=== PATIENT | female | born 1945 | race Caucasian/White ===

== ENCOUNTER → 2018-03-23 10:38 | Outpatient (CLI) | payer MEDICARE, BC, SELFPAY | PROVIDERS: PCP Family Medicine; Visit Provider Family Medicine | DX: M81.0 Age-related osteoporosis without current pathological fracture (principal); Z78.0 Asymptomatic menopausal state; Z82.62 Family history of osteoporosis | CPT/HCPCS: 77080 ==

== ENCOUNTER 2018-09-09 14:36 | Emergency (ER) | payer MEDICARE, BC, SELFPAY ==
[2018-09-09 14:54] VITALS: BP 162/93; PULSE 71; RESP 16; TEMP 36.9; O2SAT 99; BMI 19.6
[2018-09-09 18:28] VITALS: BP 124/82; PULSE 60; RESP 15; O2SAT 100
[2018-09-09 19:58] VITALS: BP 151/85; PULSE 57; RESP 17; O2SAT 98
[2018-09-09] MEDS: SODIUM CHLORIDE 0.9% 1,000 ML 1000 ML IV (20:00)
[2018-09-09 20:34] LABS: Add Manual Diff / Slide Review NO; Alanine Aminotransferase 32 IU/L (9-52); Albumin 4.7 g/dL (3.5-5.0); Albumin Globulin Ratio 1.6 (1.0-2.8); Alkaline Phosphatase 59 U/L (38-126); Aspartate Aminotransferase 33 IU/L (14-36); BUN Creatinine Ratio 13.3 (6-22); Basophils Absolute Auto 0 /uL (0-100); Basophils Percent Auto 0.3 % (0-2); Bilirubin Total 0.8 mg/dL (0.2-1.3); Blood Urea Nitrogen 8 mg/dL (7-17); Calcium 9.4 mg/dL (8.4-10.2); Carbon Dioxide 26 mmol/L (22-32); Chloride 98 mmol/L (98-107); Eosinophils Absolute Auto 0 /uL (0-450); Eosinophils Percent Auto 0.7 % (2-4); Estimated Glomerular Filt Rate > 60.0 mL/min (>60); Glucose 88 mg/dL (80-110); HEMOLYSIS < 15 (0-50); Hematocrit 41.1 % (36-46); Hemoglobin 14.1 g/dL (12.0-16.0); Lymphocytes Absolute Auto 1700 /uL (1100-4500); Mean Corpuscular HGB Conc 34.4 % (30-36); Mean Corpuscular Hemoglobin 30.6 PG (26-34); Mean Corpuscular Volume 89.1 fL (80-100); Monocytes Absolute Auto 700 /uL (0-900); Neutrophils Absolute Auto 3500 /uL (1500-7000); Platelet Count 277 X10^3/uL (150-400); Potassium 3.7 mmol/L (3.4-5.1); Red Blood Cell Count 4.62 X10^6/uL (4.0-5.2); Red Cell Distribution Width 12.2 % (11.6-14.8); Sodium 134 mmol/L (137-145); Total Protein 7.7 g/dL (6.3-8.2)
[2018-09-09 21:14] VITALS: BP 163/77; PULSE 58; RESP 15; O2SAT 100
[2018-09-09 22:49] VITALS: BP 113/80; PULSE 69; RESP 15; TEMP 37.4; O2SAT 100
--- NOTE | 2018-09-10 00:02 | ED.NAVMDI ---
HPI - Nausea/Vomiting/Diarrhea General Chief complaint: Nausea/Vomiting/Diarrhea Stated complaint: DIARRHEA X 1 YR Time Seen by Provider: 09/09/18 18:23 Source: patient and family Mode of arrival: ambulatory Limitations: no limitations History of Present Illness HPI Narrative: 72-year-old nonsmoking female without significant medical problems presents with her for evaluation of 1 year of diarrhea. She states her symptoms started last August when she took a bowel prep for a colonoscopy. She developed loose stools and had a relatively normal colonoscopy noting diverticulosis. She has had slowly worsening trouble with loose stools ever since. She has frequent episodes of generalized abdominal cramping that builds until her loose stool occurs. She states she has diarrhea within 1 hr of eating food. She is not dizzy or weak or lightheaded but is increasingly, gradually fatigued. She has an appointment in a month with GI at [facility]. No new meds, no travel or recent antibiotics MD complaint: diarrhea and abdominal pain Onset (ago): year(s) Description of Vomiting: watery Description of Diarrhea: watery Associated Abdominal Pain: Yes Location of pain: diffuse Severity: mild Quality: cramping Relieving factors: none Exacerbating factors: eating Related Data Allergies Allergy/AdvReac Type Severity Reaction Status Date / Time acetaminophen [From PERCOCET] Allergy Unknown Unverified 09/23/17 12:20 aspirin [ASPIRIN] Allergy Unknown Unverified 09/23/17 12:20 codeine [CODEINE] Allergy Unknown Unverified 09/23/17 12:20 oxycodone [From PERCOCET] Allergy Unknown Unverified 09/23/17 12:20 Review of Systems Constitutional Denies chills, Denies fever(s), Denies lethargy and Denies weakness Eyes Denies change in vision, Denies eye discharge, Denies irritation and Denies loss of vision ENT Ears, Nose, Mouth, and Throat: Denies change in voice, Denies neck pain and Denies sore throat Cardiovascular Denies chest pain, Denies irregular heart rhythm, Denies lightheadedness, Denies palpitations, Denies dyspnea, Denies dyspnea on exertion and Denies orthopnea Respiratory Denies cough, Denies dyspnea, Denies dyspnea on exertion and Denies wheezing Gastrointestinal Gastrointestinal: Denies abdominal pain, Denies change in bowel habits, Reports diarrhea, Denies nausea and Denies vomiting Genitourinary Denies hematuria, Denies flank pain, Denies urinary incontinence and Denies urinary urgency Musculoskeletal Denies neck pain Integumentary/Breasts Denies pruritus, Denies erythema, Denies rash and Denies wounds Neurologic Denies confusion, Denies loss of vision and Denies weakness Psychiatric Denies anxiety, Denies confusion, Denies depression, Denies homicidal ideation and Denies suicidal ideation Endocrine Denies palpitations Hematologic/Lymphatic Denies easy bruising Allergic/Immunologic Denies wheezing [facility] Social History Smoking Status: Never smoker Social History Smoking Status: Never smoker Exam Narrative Exam Narrative: GENERAL: This is a well-nourished, well-developed patient, in mild distress. HEAD: Atraumatic. Normocephalic. No temporal or scalp tenderness. EYES: Pupils equal round and reactive. Extraocular motions intact. No scleral icterus. No injection or drainage. ENT: Nose without bleeding, purulent drainage or septal hematoma. Throat without erythema, tonsillar hypertrophy or exudate. Uvula midline. Airway patent. NECK: Trachea midline. No JVD or lymphadenopathy. Supple, nontender, no meningeal signs. CARDIOVASCULAR: Regular rate and rhythm without murmurs, gallops, or rubs. RESPIRATORY: Clear to auscultation. Breath sounds equal bilaterally. No wheezes, rales, or rhonchi. GASTROINTESTINAL: Abdomen soft, non-tender, nondistended. No hepato-splenomegaly, or palpable masses. No guarding. EXTREMITIES: No clubbing, cyanosis, or edema. No joint tenderness, effusion, or edema noted. BACK: Nontender without deformity or crepitance. No flank tenderness. NEURO: AOx3. SKIN: No rash or erythema. Initial Vital Signs Initial Vital Signs: Vital Signs Temperature 98.4 F 09/09/18 14:54 Pulse Rate 71 09/09/18 14:54 Respiratory Rate 16 09/09/18 14:54 Blood Pressure 162/93 H 09/09/18 14:54 Pulse Oximetry 99 09/09/18 14:54 Course Course Narrative: Discussion with on-call GI to see if there are any labs that we could order that may help their upcoming visit. He requests ova and parasites, fecal leukocytes, C diff and GI panel patient feels better after fluids, has a small BM which is NOT enough for all studies Orders Ordered: ED Orders 09/09/18 20:25 Complete Blood Count AUTO DIFF Stat Comprehensive Metabolic Panel Stat 09/09/18 22:14 GI Panel (Film Array) Stat 09/09/18 22:20 Fecal Leukocytes Stat Stool Culture Stat Discontinued Medications Sodium Chloride (Normal Saline 0.9%) 1,000 mls @ 1,000 mls/hr IV BOLUS ONE Stop: 09/09/18 20:55 Last Infusion: 09/09/18 21:07 Dose: 1,000 mls/hr Admin: 09/09/18 20:00 Dose: 1,000 mls/hr Vital Signs - 8 hr 09/09/18 18:28 09/09/18 19:58 09/09/18 21:14 Temperature Pulse Rate 60 57 L 58 L Respiratory Rate 15 17 15 Blood Pressure [Left Arm] 124/82 151/85 H 163/77 H Pulse Oximetry 100 98 100 09/09/18 22:49 Temperature 99.3 F Pulse Rate 69 Respiratory Rate 15 Blood Pressure [Left Arm] 113/80 Pulse Oximetry 100 MDM - Nausea/Vomiting/Diarrhea Lab Data Result diagrams: 09/09/18 20:25 09/09/18 20:25 Lab Results 09/09/18 09/09/18 Range/Units 20:25 20:25 WBC 6.0 (4.5-11.0) X10^3/uL RBC 4.62 (4.0-5.2) X10^6/uL Hgb 14.1 (12.0-16.0) g/dL Hct 41.1 (36-46) % MCV 89.1 (80-100) fL MCH 30.6 (26-34) PG MCHC 34.4 (30-36) % RDW 12.2 (11.6-14.8) % Plt Count 277 (150-400) X10^3/uL Neut % (Auto) 59.0 (50-75) % Lymph % (Auto) 29.0 (25-40) % [place] % (Auto) 11.0 (3-14) % Eos % (Auto) 0.7 L (2-4) % Baso % (Auto) 0.3 (0-2) % Neut # (Auto) 3500 (3860-6493) /uL Lymph # (Auto) 1700 (6632-6752) /uL [place] # (Auto) 700 (0-900) /uL Eos # (Auto) 0 (0-450) /uL Baso # (Auto) 0 (0-100) /uL Sodium 134 L (137-145) mmol/L Potassium 3.7 (3.4-5.1) mmol/L Chloride 98 (98-107) mmol/L Carbon Dioxide 26 (22-32) mmol/L BUN 8 (7-17) mg/dL Creatinine 0.60 (0.52-1.04) mg/dL Estimated GFR > 60.0 (>60) mL/min BUN/Creatinine Ratio 13.3 (6-22) Glucose 88 (80-110) mg/dL Calcium 9.4 (8.4-10.2) mg/dL Total Bilirubin 0.8 (0.2-1.3) mg/dL AST 33 (14-36) IU/L ALT 32 (9-52) IU/L Alkaline Phosphatase 59 (38-126) U/L Total Protein 7.7 (6.3-8.2) g/dL Albumin 4.7 (3.5-5.0) g/dL Globulin 3.0 (1.7-4.1) g/dL Albumin/Globulin Ratio 1.6 (1.0-2.8) Discharge Plan Departure Patient Disposition: Home Clinical Impression: Diarrhea Qualifiers: Diarrhea type: unspecified type Qualified Code(s): R19.7 - Diarrhea, unspecified Discharge Date/Time: 09/09/18 22:50 Interventions: ED Discharge Assessment Last Done: 09/09/18 22:50 Instructions: Diarrhea Activity Restrictions/Additional Instructions: *You have been diagnosed with [ chronic diarrhea ] *What to do: *Follow up with your primary care provider in 2-3 days, call for an appointment. Let them know you were seen in the Emergency Department and that we ask that you be seen in follow up *Return to ER if you should have any new, worsening or concerning symptoms * please bring your stool sample back with her outpatient lab requisition tomorrow. It must immediately going to refrigeration upon collection Referrals: Sameer Adam MD [Primary Care Provider] - Manny Faust MD [Non-Staff] -
--- NOTE | 2018-09-10 00:06 | ED_ITS ---
HPI - Nausea/Vomiting/Diarrhea General Chief complaint: Nausea/Vomiting/Diarrhea Stated complaint: DIARRHEA X 1 YR Time Seen by Provider: 09/09/18 18:23 Source: patient and family Mode of arrival: ambulatory Limitations: no limitations History of Present Illness HPI Narrative: 72-year-old nonsmoking female without significant medical problems presents with her for evaluation of 1 year of diarrhea. She states her symptoms started last August when she took a bowel prep for a colonoscopy. She developed loose stools and had a relatively normal colonoscopy noting diverticulosis. She has had slowly worsening trouble with loose stools ever since. She has frequent episodes of generalized abdominal cramping that builds until her loose stool occurs. She states she has diarrhea within 1 hr of eating food. She is not dizzy or weak or lightheaded but is increasingly, gradually fatigued. She has an appointment in a month with GI at [facility]. No new meds, no travel or recent antibiotics MD complaint: diarrhea and abdominal pain Onset (ago): year(s) Description of Vomiting: watery Description of Diarrhea: watery Associated Abdominal Pain: Yes Location of pain: diffuse Severity: mild Quality: cramping Relieving factors: none Exacerbating factors: eating Related Data Allergies Allergy/AdvReac Type Severity Reaction Status Date / Time acetaminophen [From PERCOCET] Allergy Unknown Unverified 09/23/17 12:20 aspirin [ASPIRIN] Allergy Unknown Unverified 09/23/17 12:20 codeine [CODEINE] Allergy Unknown Unverified 09/23/17 12:20 oxycodone [From PERCOCET] Allergy Unknown Unverified 09/23/17 12:20 Review of Systems Constitutional Denies chills, Denies fever(s), Denies lethargy and Denies weakness Eyes Denies change in vision, Denies eye discharge, Denies irritation and Denies loss of vision ENT Ears, Nose, Mouth, and Throat: Denies change in voice, Denies neck pain and Denies sore throat Cardiovascular Denies chest pain, Denies irregular heart rhythm, Denies lightheadedness, Denies palpitations, Denies dyspnea, Denies dyspnea on exertion and Denies orthopnea Respiratory Denies cough, Denies dyspnea, Denies dyspnea on exertion and Denies wheezing Gastrointestinal Gastrointestinal: Denies abdominal pain, Denies change in bowel habits, Reports diarrhea, Denies nausea and Denies vomiting Genitourinary Denies hematuria, Denies flank pain, Denies urinary incontinence and Denies urinary urgency Musculoskeletal Denies neck pain Integumentary/Breasts Denies pruritus, Denies erythema, Denies rash and Denies wounds Neurologic Denies confusion, Denies loss of vision and Denies weakness Psychiatric Denies anxiety, Denies confusion, Denies depression, Denies homicidal ideation and Denies suicidal ideation Endocrine Denies palpitations Hematologic/Lymphatic Denies easy bruising Allergic/Immunologic Denies wheezing [facility] Social History Smoking Status: Never smoker Social History Smoking Status: Never smoker Exam Narrative Exam Narrative: GENERAL: This is a well-nourished, well-developed patient, in mild distress. HEAD: Atraumatic. Normocephalic. No temporal or scalp tenderness. EYES: Pupils equal round and reactive. Extraocular motions intact. No scleral icterus. No injection or drainage. ENT: Nose without bleeding, purulent drainage or septal hematoma. Throat without erythema, tonsillar hypertrophy or exudate. Uvula midline. Airway patent. NECK: Trachea midline. No JVD or lymphadenopathy. Supple, nontender, no meni ngeal signs. CARDIOVASCULAR: Regular rate and rhythm without murmurs, gallops, or rubs. RESPIRATORY: Clear to auscultation. Breath sounds equal bilaterally. No wheezes, rales, or rhonchi. GASTROINTESTINAL: Abdomen soft, non-tender, nondistended. No hepato- splenomegaly, or palpable masses. No guarding. EXTREMITIES: No clubbing, cyanosis, or edema. No joint tenderness, effusion, or edema noted. BACK: Nontender without deformity or crepitance. No flank tenderness. NEURO: AOx3. SKIN: No rash or erythema. Initial Vital Signs Initial Vital Signs: Vital Signs Temperature 98.4 F 09/09/18 14:54 Pulse Rate 71 09/09/18 14:54 Respiratory Rate 16 09/09/18 14:54 Blood Pressure 162/93 H 09/09/18 14:54 Pulse Oximetry 99 09/09/18 14:54 Course Course Narrative: Discussion with on-call GI to see if there are any labs that we could order that may help their upcoming visit. He requests ova and parasites, fecal leukocytes, C diff and GI panel patient feels better after fluids, has a small BM which is NOT enough for all studies Orders Ordered: ED Orders 09/09/18 20:25 Complete Blood Count AUTO DIFF Stat Comprehensive Metabolic Panel Stat 09/09/18 22:14 GI Panel (Film Array) Stat 09/09/18 22:20 Fecal Leukocytes Stat Stool Culture Stat Discontinued Medications Sodium Chloride (Normal Saline 0.9%) 1,000 mls @ 1,000 mls/hr IV BOLUS ONE Stop: 09/09/18 20:55 Last Infusion: 09/09/18 21:07 Dose: 1,000 mls/hr Admin: 09/09/18 20:00 Dose: 1,000 mls/hr Vital Signs - 8 hr 09/09/18 18:28 09/09/18 19:58 09/09/18 21:14 Temperature Pulse Rate 60 57 L 58 L Respiratory Rate 15 17 15 Blood Pressure [Left Arm] 124/82 151/85 H 163/77 H Pulse Oximetry 100 98 100 09/09/18 22:49 Temperature 99.3 F Pulse Rate 69 Respiratory Rate 15 Blood Pressure [Left Arm] 113/80 Pulse Oximetry 100 MDM - Nausea/Vomiting/Diarrhea Lab Data Result diagrams: 09/09/18 20:25 09/09/18 20:25 Lab Results 09/09/18 09/09/18 Range/Units 20:25 20:25 WBC 6.0 (4.5-11.0) X10^3/uL RBC 4.62 (4.0-5.2) X10^6/uL Hgb 14.1 (12.0-16.0) g/dL Hct 41.1 (36-46) % MCV 89.1 (80-100) fL MCH 30.6 (26-34) PG MCHC 34.4 (30-36) % RDW 12.2 (11.6-14.8) % Plt Count 277 (150-400) X10^3/uL Neut % (Auto) 59.0 (50-75) % Lymph % (Auto) 29.0 (25-40) % [place] % (Auto) 11.0 (3-14) % Eos % (Auto) 0.7 L (2-4) % Baso % (Auto) 0.3 (0-2) % Neut # (Auto) 3500 (5030-6540) /uL Lymph # (Auto) 1700 (6327-1162) /uL [place] # (Auto) 700 (0-900) /uL Eos # (Auto) 0 (0-450) /uL Baso # (Auto) 0 (0-100) /uL Sodium 134 L (137-145) mmol/L Potassium 3.7 (3.4-5.1) mmol/L Chloride 98 (98-107) mmol/L Carbon Dioxide 26 (22-32) mmol/L BUN 8 (7-17) mg/dL Creatinine 0.60 (0.52-1.04) mg/dL Estimated GFR > 60.0 (>60) mL/min BUN/Creatinine Ratio 13.3 (6-22) Glucose 88 (80-110) mg/dL Calcium 9.4 (8.4-10.2) mg/dL Total Bilirubin 0.8 (0.2-1.3) mg/dL AST 33 (14-36) IU/L ALT 32 (9-52) IU/L Alkaline Phosphatase 59 (38-126) U/L Total Protein 7.7 (6.3-8.2) g/dL Albumin 4.7 (3.5-5.0) g/dL Globulin 3.0 (1.7-4.1) g/dL Albumin/Globulin Ratio 1.6 (1.0-2.8) Discharge Plan Departure Patient Disposition: Home Clinical Impression: Diarrhea Qualifiers: Diarrhea type: unspecified type Qualified Code(s): R19.7 - Diarrhea, uns pecified Discharge Date/Time: 09/09/18 22:50 Interventions: ED Discharge Assessment Last Done: 09/09/18 22:50 Instructions: Diarrhea Activity Restrictions/Additional Instructions: *You have been diagnosed with [ chronic diarrhea ] *What to do: *Follow up with your primary care provider in 2-3 days, call for an appointment. Let them know you were seen in the Emergency Department and that we ask that you be seen in follow up *Return to ER if you should have any new, worsening or concerning symptoms * please bring your stool sample back with her outpatient lab requisition tomorrow. It must immediately going to refrigeration upon collection Referrals: Sameer Adam MD [Primary Care Provider] - Manny Faust MD [Non-Staff] -
== END 2018-09-09 22:50 | disposition home or self-care (01) ==
PROVIDERS: Emergency Provider Emergency Medicine; PCP Family Medicine
DX: R19.7 Diarrhea, unspecified (principal)
CPT/HCPCS: 36591; 80053; 85025; 87045; 87205; 87899; 96360; 99283; 99284

== ENCOUNTER → 2018-09-10 08:00 | Outpatient (CLI) | payer MEDICARE, BC, SELFPAY ==
[2018-09-10 09:52] LABS: Adenovirus F 40/41 Not Detected (Not Detect); Astrovirus Not Detected (Not Detect); Campylobacter Not Detected (Not Detect); Clostridium difficile toxin AB Not Detected (Not Detect); Cryptosporidium Not Detected (Not Detect); Cyclospora cayetanensis Not Detected (Not Detect); Entamoeba histolytica Not Detected (Not Detect); Enteroaggregative E.coli Not Detected (Not Detect); Enteropathogenic E.coli Detected (Not Detect); Enterotoxigenic E.coli It/st Not Detected (Not Detect); Giardia lamblia Not Detected (Not Detect); Norovirus GI/GII Not Detected (Not Detect); Plesiomonsa shigelloides Not Detected (Not Detect); Rotavirus A Not Detected (Not Detect); Salmonella Not Detected (Not Detect); Sapovirus Not Detected (Not Detect); Shiga-like toxin-prod E.coli Not Detected (Not Detect); Shigella/Enteroinvasive E.coli Not Detected (Not Detect); Vibrio Not Detected (Not Detect); Vibrio cholerae Not Detected (Not Detect); Yersinia enterocolitica Not Detected (Not Detect)
== END ==
PROVIDERS: Family Provider Internal Medicine Gastroenterology; PCP Family Medicine; Visit Provider Emergency Medicine
DX: R19.7 Diarrhea, unspecified (principal)
CPT/HCPCS: 87507

== ENCOUNTER → 2018-10-06 10:43 | Outpatient (CLI) | payer MEDICARE, BC, SELFPAY ==
[2018-10-06 15:09] LABS: Clostridium Difficile Tox PCR Negative for C.diff
== END ==
PROVIDERS: Visit Provider Internal Medicine Gastroenterology
DX: K52.9 Noninfective gastroenteritis and colitis, unspecified (principal)
CPT/HCPCS: 87177; 87493

== ENCOUNTER → 2019-05-09 10:45 | Outpatient (CLI) | payer MEDICARE, BC, SELFPAY ==
--- NOTE | 2019-05-09 | DI.MG.S_ITS ---
BILATERAL DIGITAL SCREENING MAMMOGRAM 3D/2D WITH CAD: 05/09/2019 CLINICAL: Routine screening. Comparison is made to exams dated: 04/16/2017 mammogram - [facility], 04/08/2016 mammogram, and 02/22/2015 mammogram - [facility]. The tissue of both breasts is extremely dense, which lowers the sensitivity of mammography. Current study was also evaluated with a Computer Aided Detection (CAD) system. No significant masses, calcifications, or other findings are seen in either breast. There has been no significant interval change. IMPRESSION: NEGATIVE There is no mammographic evidence of malignancy. A 1 year screening mammogram is recommended. This exam was interpreted at Station ID: [id number]. NOTE: For mammograms, a report in lay terms will be sent to the patient. Approximately 15% of breast malignancies will not be visualized mammographically. In the management of a palpable breast mass, a negative mammogram must not discourage biopsy of a clinically suspicious lesion. Electronically Signed By: Ellen bustos/adria:05/09/2019 11:47:46 letter sent: Normal Exam ACR BI-RADS Category 1: Negative 3341F
[2019-05-09 11:52] LABS: Add Manual Diff / Slide Review NO; Basophils Absolute Auto 0 /uL (0-100); Basophils Percent Auto 0.7 % (0-2); Eosinophils Absolute Auto 100 /uL (0-450); Eosinophils Percent Auto 1.5 % (2-4); Hemoglobin 14.9 g/dL (12.0-16.0); Lymphocytes Absolute Auto 1800 /uL (1100-4500); Lymphocytes Percent Auto 27.4 % (25-40); Mean Corpuscular HGB Conc 34.5 % (30-36); Mean Corpuscular Hemoglobin 31.3 PG (26-34); Mean Corpuscular Volume 90.7 fL (80-100); Monocytes Absolute Auto 500 /uL (0-900); Monocytes Percent Auto 7.7 % (3-14); Neutrophils Absolute Auto 4000 /uL (1500-7000); Neutrophils Percent Auto 62.7 % (50-75); Platelet Count 273 X10^3/uL (150-400); Red Blood Cell Count 4.75 X10^6/uL (4.0-5.2); Red Cell Distribution Width 12.6 % (11.6-14.8); White Blood Cell Count 6.4 X10^3/uL (4.5-11.0)
[2019-05-09 12:15] LABS: Cholesterol 306 mg/dL (140-199); Triglycerides 72 mg/dL (35-150)
[2019-05-09 12:25] LABS: HDL Cholesterol 111 mg/dL (40-60); LDL Cholesterol Calculated 181 mg/dL (<100)
[2019-05-09 16:39] LABS: Hep C Virus Ab w/Reflex Quant NEGATIVE s/c (NEGATIVE)
== END ==
PROVIDERS: PCP Family Medicine; Visit Provider Family Medicine
DX: Z12.31 Encounter for screening mammogram for malignant neoplasm of breast (principal); Z11.59 Encounter for screening for other viral diseases; E78.49 Other hyperlipidemia; K52.9 Noninfective gastroenteritis and colitis, unspecified
CPT/HCPCS: 36415; 77063; 77067; 80061; 85025; 86803

== ENCOUNTER → 2020-03-01 09:20 | Outpatient (CLI) | payer MEDICARE, BC, SELFPAY | PROVIDERS: PCP Family Medicine; Referring Provider Family Medicine; Visit Provider Family Medicine | DX: M81.0 Age-related osteoporosis without current pathological fracture (principal); Z78.0 Asymptomatic menopausal state; Z82.62 Family history of osteoporosis | CPT/HCPCS: 77080 ==

== ENCOUNTER → 2020-05-22 10:46 | Outpatient (CLI) | payer MEDICARE, BC, SELFPAY ==
--- NOTE | 2020-05-22 | DI.MG.S_ITS ---
BILATERAL DIGITAL SCREENING MAMMOGRAM 3D/2D WITH CAD: 05/22/2020 CLINICAL: Routine screening. Comparison is made to exams dated: 05/09/2019 mammogram, 04/16/2017 mammogram - [facility], and 04/08/2016 mammogram - [facility]. The tissue of both breasts is extremely dense, which lowers the sensitivity of mammography. Current study was also evaluated with a Computer Aided Detection (CAD) system. No significant masses, calcifications, or other findings are seen in either breast. There has been no significant interval change. IMPRESSION: NEGATIVE There is no mammographic evidence of malignancy. A 1 year screening mammogram is recommended. This exam was interpreted at Station ID: [id number]. NOTE: For mammograms, a report in lay terms will be sent to the patient. Approximately 15% of breast malignancies will not be visualized mammographically. In the management of a palpable breast mass, a negative mammogram must not discourage biopsy of a clinically suspicious lesion. Electronically Signed By: Antwan [email or web address]/adria:05/22/2020 14:18:29 letter sent: Normal Exam ACR BI-RADS Category 1: Negative 3341F
== END ==
PROVIDERS: PCP Family Medicine; Referring Provider Family Medicine; Visit Provider Family Medicine
DX: Z12.31 Encounter for screening mammogram for malignant neoplasm of breast (principal)
CPT/HCPCS: 77063; 77067

== ENCOUNTER → 2021-05-23 08:54 | Outpatient (CLI) | payer MEDICARE, OTHER, SELFPAY ==
--- NOTE | 2021-05-23 | DI.MG.S_ITS ---
BILATERAL DIGITAL SCREENING MAMMOGRAM 3D/2D WITH CAD: 05/23/2021 CLINICAL: Routine screening. Comparison is made to exams dated: 05/22/2020 mammogram, 05/09/2019 mammogram, and 04/16/2017 mammogram - [facility]. The tissue of both breasts is heterogeneously dense. This may lower the sensitivity of mammography. Current study was also evaluated with a Computer Aided Detection (CAD) system. No significant masses, calcifications, or other findings are seen in either breast. There has been no significant interval change. IMPRESSION: NEGATIVE There is no mammographic evidence of malignancy. A 1 year screening mammogram is recommended. This exam was interpreted at Station ID: [id number]. NOTE: For mammograms, a report in lay terms will be sent to the patient. Approximately 15% of breast malignancies will not be visualized mammographically. In the management of a palpable breast mass, a negative mammogram must not discourage biopsy of a clinically suspicious lesion. Electronically Signed By: Ellen ubstos/adria:05/23/2021 10:03:26 letter sent: Normal Exam ACR BI-RADS Category 1: Negative [id number]
== END ==
PROVIDERS: PCP Nurse Practitioner Family; Referring Provider Nurse Practitioner Family; Visit Provider Nurse Practitioner Family
DX: Z12.31 Encounter for screening mammogram for malignant neoplasm of breast (principal)
CPT/HCPCS: 77063; 77067

== ENCOUNTER → 2022-12-25 09:24 | Outpatient (CLI) | payer MEDICARE, OTHER, SELFPAY ==
--- NOTE | 2022-12-25 | DI.US.S_ITS ---
PROCEDURE: US ABD AORTA ANEURYSM SCREEN INDICATIONS: SCREENING FOR CARDIOVASCULAR STUDY TECHNIQUE: Real time scanning was performed of the aorta and iliac arteries, with image documentation. COMPARISON: None. FINDINGS: Aorta: Proximal aortic diameter measures 2.6 cm. Mid-aorta measures 2 cm. Distal aortic diameter is 1.9 cm. Iliac arteries: Right common iliac artery measures 1.4 cm. Left common iliac artery measures 1.2 cm. IMPRESSION: Negative for aneurysm. Dictated by: Fransisco Dodd M.D. on 12/25/2022 at 15:26 Approved by: Fransisco Dodd M.D. on 12/25/2022 at 15:26
--- NOTE | 2022-12-25 | DI.MG.S_ITS ---
BILATERAL DIGITAL SCREENING MAMMOGRAM 3D/2D WITH CAD: 12/25/2022 CLINICAL: Routine screening. Comparison is made to exams dated: 05/23/2021 mammogram, 05/22/2020 mammogram, and 05/09/2019 mammogram - [facility]. Both breasts are heterogeneously dense, which may obscure small masses (category c / 51-75% glandular tissue). Current study was also evaluated with a Computer Aided Detection (CAD) system. No significant masses, calcifications, or other findings are seen in either breast. There has been no significant interval change. IMPRESSION: NEGATIVE There is no mammographic evidence of malignancy. A 1 year screening mammogram is recommended. Based on the Tyrer Cuzick model (a risk assessment model) the patient's lifetime risk is 7.4% and her 10 year risk is 0.0%. According to the ACR, ACS, and NCCN guidelines, an annual breast MRI exam along with mammogram is recommended if the patient's lifetime risk is 20% or greater. This exam was interpreted at Station ID: [id number]. NOTE: For mammograms, a report in lay terms will be sent to the patient. Approximately 15% of breast malignancies will not be visualized mammographically. In the management of a palpable breast mass, a negative mammogram must not discourage biopsy of a clinically suspicious lesion. Electronically Signed By: Marcelo hernandez/adria:12/25/2022 14:25:33 letter sent: Normal Exam ACR BI-RADS Category 1: Negative [id number]
== END ==
PROVIDERS: PCP Family Medicine; Referring Provider Nurse Practitioner Family; Visit Provider Nurse Practitioner Family
DX: Z12.31 Encounter for screening mammogram for malignant neoplasm of breast (principal); Z13.6 Encounter for screening for cardiovascular disorders
CPT/HCPCS: 76706; 77063; 77067

== ENCOUNTER 2023-08-07 18:03 | Emergency (ER) | payer MEDICARE, OTHER, SELFPAY ==
[2023-08-07 18:27] VITALS: BP 167/100; PULSE 67; RESP 18; TEMP 36.7; O2SAT 98; BMI 18.7
--- NOTE | 2023-08-07 18:32 | DI.RAD.S_ITS ---
PROCEDURE: XR WRIST LT MIN 3V INDICATIONS: pain, in EMS splint TECHNIQUE: 4 views of the wrist were acquired. COMPARISON: None. FINDINGS: Bones: Mildly displaced, extra-articular fracture of the distal radial metadiaphysis. [place] volar angulation. Soft tissues: No suspicious soft tissue calcifications. IMPRESSION: Extra-articular fracture of the distal radial metadiaphysis. Dictated by: Ludwin King M.D. on 08/07/2023 at 19:22 Approved by: Ludwin King M.D. on 08/07/2023 at 19:23
--- NOTE | 2023-08-07 20:23 | ED.UPPEXIN ---
HPI - Extremity Injury (Upper) General Chief Complaint: Extremity Injury, Upper Stated Complaint: fell on Lhand about 2ft high/broken? Time Seen by Provider: 08/07/23 20:23 Source: patient Mode of arrival: Ambulatory History of Present Illness HPI narrative: This is a 77-year-old female with complaint of fall onto her left hand with concern for fracture. Patient states no other injuries. No anticoagulants. She states no daily medications. Patient states no numbness tingling or weakness she can move all 5 fingers. She came from [place] this happened earlier today. Patient denies any other issues currently. States no major surgeries. States she has not allergy to Percocet but can tolerate Mars or Vicodin without issue. Related Data Previous Rx's Medication Instructions Recorded hydrocodone 5 mg-acetaminophen 325 1 tab PO Q6H PRN pain #20 tabs 08/07/23 mg tablet Allergies Allergy/AdvReac Type Severity Reaction Status Date / Time acetaminophen [From PERCOCET] Allergy Unknown Unverified 09/23/17 12:20 aspirin [ASPIRIN] Allergy Unknown Unverified 09/23/17 12:20 codeine [CODEINE] Allergy Unknown Unverified 09/23/17 12:20 oxycodone [From PERCOCET] Allergy Unknown Unverified 09/23/17 12:20 Review of Systems Review of Systems ROS Unobtainable: All systems reviewed & are unremarkable except as noted in HPI and below Patient History Social History Smoking Status: Never smoker Smoking Status: Never smoker alcohol intake frequency: holidays/special occasions only Substance Use Type: does not use Exam Narrative Exam Narrative: GENERAL: Alert and oriented x three, well-appearing female in mild distress. HEENT: Head normocephalic, atraumatic, EOMI, pupils reactive, face symmetric, moist mucous membranes NECK: Supple, full range of motion CARDIOVASCULAR: Regular rate and rhythm without murmurs, rubs or gallops. RESPIRATORY: Breath sounds equal bilaterally, no wheezes rales or rhonchi. ABDOMEN: Soft, nontender. Normoactive bowel sounds all 4 quadrants. No guarding or rebound, rigidity, no mass : No CVA tenderness EXTREMITIES: Normal range of motion, no clubbing, patient has some mild displacement, patient is neurovascularly intact with no bony tenderness of the fingers or hand. Cap refills less than 2 seconds in all 5 fingers with normal range of motion and muscle strength. 2+ radial pulse. Patient has a small amount of bruising.. Neurovascularly intact NEUROLOGICAL: Cranial nerves II through XII grossly intact. Moving all extremities SKIN: Warm, dry, no petechiae, no rashes or lesions. Initial Vital Signs Initial Vital Signs: Vital Signs Temperature 98.1 F 08/07/23 18:27 Pulse Rate 67 08/07/23 18:27 Respiratory Rate 18 08/07/23 18:27 Blood Pressure 167/100 H 08/07/23 18:27 Pulse Oximetry 98 08/07/23 18:27 Oxygen Delivery Method Room Air 08/07/23 18:27 Course Orders Ordered: ED Orders 08/07/23 18:32 XR wrist LT min 3V Stat Discontinued Medications Hydrocodone Bitart/Acetaminophen (Hydrocodone/Acet 5/325 Prepack) 1 bottle MISC DIRECTED ONE Stop: 08/07/23 20:30 Last Admin: 08/07/23 20:39 Dose: 1 bottle Documented By: SB Vital Signs Vital signs: Vital Signs - 8 hr 08/07/23 18:27 Temperature 98.1 F Pulse Rate 67 Respiratory Rate 18 Blood Pressure 167/100 H Pulse Oximetry 98 Oxygen Delivery Method Room Air MDM - Extremity Injury (Upper) Imaging Data Extremity x-ray #1: Radiologist's Impression: Close Wrist X-Ray (Signed) Ludwin King - 08/07/23 Mammogram Screening (Signed) Marcelo Angelo - 12/25/22 Abdominal Arterial Study US (Signed) Fransisco Dodd - 12/25/22 Mammogram Screening (Signed) Ellen Matthews - 05/23/21 Mammogram Screening (Signed) Antwan Oconnor - 05/22/20 Bone Densitometry 03/01/20 Mammogram Screening (Signed) Ellen Matthews - 05/09/[address] [address] XRay Report Signed Patient: Elise Cabrera MR#: [id number] : 1945 Acct:[id number] Age/Sex: 77 / F Date of Service: 08/07/23 Loc: ED Accession Number: [id number] Procedure: XR wrist LT min 3V Ordering Provider: Marce Devi D.O. PROCEDURE: XR WRIST LT MIN 3V INDICATIONS: pain, in EMS splint TECHNIQUE: 4 views of the wrist were acquired. COMPARISON: None. FINDINGS: Bones: Mildly displaced, extra-articular fracture of the distal radial metadiaphysis. [place] volar angulation. Soft tissues: No suspicious soft tissue calcifications. IMPRESSION: Extra-articular fracture of the distal radial metadiaphysis. Dictated by: Ludwin King M.D. on 08/07/2023 at 19:22 Approved by: Ludwin King M.D. on 08/07/2023 at 19:23 [facility] Narrative Medical decision making narrative: 77-year-old female with ground level fall with obvious fracture on x-ray with some misalignment. Placed in splint, neurovascularly intact with plan for follow up with Orthopedic surgery. Discharge Plan Departure Patient Disposition: Home Clinical Impression: Fracture of wrist Instructions: DI for Wrist Fracture Activity Restrictions/Additional Instructions: Follow-up with orthopedic surgery in the next 7-10 days. Call Thursday to set up a follow up appointment. Contact information is included below. You may take 1-2 tablets of Mars every 6 hours as needed for pain. This medication can make you sleepy do not drive, perform hazardous activities or make any major decisions while taking it. This medication will make you constipated please take a stool softener once to twice daily until stools are soft and regular. Prescription sent to [facility], Splint Care: Keep splint clean and dry. Elevated affected body part to decrease swelling. OK to use ice pack on the affected body part. Use for 15-20 minutes each time, for 5-6x per day. If you develop worsening pain, numbness, tingling, discoloration of the affected body part, loosen the splint by loosening the TORI wrap, and either see your doctor for an urgent re-assessment, or return to the Emergency Department. Return to the Emergency Department for any new or worsening symptoms. Prescriptions: New hydrocodone-acetaminophen 5-325 mg tablet 1 tab PO Q6H PRN (Reason: pain) Qty: 20 0RF Referrals: Rowena Flowers MD [Primary Care Provider] - Rodrigo Mccormick MD [Physician] - Stand Alone Forms: Patient Portal/API
[2023-08-07] MEDS: HYDROCODONE/ACET 5/325 PREPACK 1 BOTTLE MISC (20:39)
== END 2023-08-07 20:40 | disposition home or self-care (01) ==
PROVIDERS: Emergency Provider Emergency Medicine; PCP Family Medicine
DX: S52.502A Unspecified fracture of the lower end of left radius, initial encounter for closed fracture (principal); W18.30XA Fall on same level, unspecified, initial encounter
CPT/HCPCS: 29125; 73110; 99283

== ENCOUNTER 2024-01-08 17:27 | Emergency (ER) | payer MEDICARE, OTHER, SELFPAY ==
[2024-01-08 17:35] VITALS: BP 172/90; PULSE 78; RESP 15; TEMP 37.4; O2SAT 96; BMI 17.4
[2024-01-08 18:01] VITALS: PULSE 77; O2SAT 93
--- NOTE | 2024-01-08 18:07 | EKG_ITS ---
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
--- NOTE | 2024-01-08 18:08 | DI.RAD.S_ITS ---
PROCEDURE: XR CHEST 1V INDICATIONS: SOB TECHNIQUE: One view of the chest was acquired. COMPARISON: None. FINDINGS: Surgical changes and devices: None. Lungs and pleura: Lungs are clear. No pleural effusions or pneumothorax. Mediastinum: Mediastinal contours appear normal. Heart size is normal. Bones and chest wall: No suspicious bony lesions. Overlying soft tissues appear unremarkable. IMPRESSION: No acute cardiopulmonary abnormality is seen. Dictated by: Sandoval Bonilla M.D. on 01/08/2024 at 18:59 Approved by: Sandoval Bonilla M.D. on 01/08/2024 at 18:59
--- NOTE | 2024-01-08 18:08 | DI.RAD.S_ITS ---
PROCEDURE: XR ABDOMEN 1V INDICATIONS: ABD pain TECHNIQUE: One view of the abdomen acquired. COMPARISON: None. FINDINGS: Surgical changes and devices: Partially visualized bilateral hip ORIF. Surgical clips projecting over the pelvis. Bowel: Bowel gas pattern is normal. Soft tissues: No suspicious abdominal calcifications. Visualized solid organ contours appear normal in size. Bones: No suspicious bony lesions. Degenerative changes of the spine and decreased osseous mineralization. IMPRESSION: Nonobstructive bowel gas pattern. Moderate stool burden. Dictated by: Sandoval Bonilla M.D. on 01/08/2024 at 18:58 Approved by: Sandoval Bonilla M.D. on 01/08/2024 at 18:59
[2024-01-08 18:25] LABS: Basophils Absolute Auto 100 /uL (0-100); Basophils Percent Auto 0.9 % (0-2); Eosinophils Absolute Auto 100 /uL (0-450); Eosinophils Percent Auto 1.2 % (2-4); Hematocrit 40.2 % (36-46); Hemoglobin 13.7 g/dL (12.0-16.0); Lymphocytes Absolute Auto 2000 /uL (1100-4500); Lymphocytes Percent Auto 20.6 % (25-40); Mean Corpuscular HGB Conc 34.2 % (30-36); Mean Corpuscular Hemoglobin 30.4 PG (26-34); Mean Corpuscular Volume 88.9 fL (80-100); Monocytes Absolute Auto 800 /uL (0-900); Monocytes Percent Auto 8.6 % (3-14); Neutrophils Absolute Auto 6600 /uL (1500-7000); Neutrophils Percent Auto 68.7 % (50-75); Red Blood Cell Count 4.52 X10^6/uL (4.0-5.2); Red Cell Distribution Width 12.8 % (11.6-14.8); White Blood Cell Count 9.6 X10^3/uL (4.5-11.0)
[2024-01-08 18:31] LABS: Alanine Aminotransferase 18 IU/L (<35); Albumin 4.6 g/dL (3.5-5.0); Albumin Globulin Ratio 1.5 (1.0-2.8); Alkaline Phosphatase 111 U/L (38-126); Aspartate Aminotransferase 32 IU/L (14-36); BUN Creatinine Ratio 10.5 (6-22); Bilirubin Total 0.6 mg/dL (0.2-1.3); Blood Urea Nitrogen 6 mg/dL (7-17); Calcium 9.4 mg/dL (8.4-10.2); Carbon Dioxide 24 mmol/L (22-32); Chloride 99 mmol/L (98-107); Estimated Glomerular Filt Rate > 60 mL/min (>60); Globulin 3.1 g/dL (1.7-4.1); Glucose 105 mg/dL (80-110); HEMOLYSIS < 15 (0-50); Lipase 83 U/L (23-300); Potassium 3.8 mmol/L (3.4-5.1); Sodium 133 mmol/L (137-145); Total Protein 7.7 g/dL (6.3-8.2)
--- NOTE | 2024-01-08 18:31 | DI.US.S_ITS ---
PROCEDURE: US ABD AORTA ANEURYSM SCREEN INDICATIONS: eval for AAA TECHNIQUE: Real time scanning was performed of the aorta and iliac arteries, with image documentation. COMPARISON: None. FINDINGS: Aorta: Proximal aortic diameter measures 2.3 cm. Mid-aorta measures 1.9 cm. Distal aortic diameter is 1.7 cm. Iliac arteries: Right common iliac artery measures 1.2 cm. Left common iliac artery measures 1.0 cm. IMPRESSION: No abdominal aortic aneurysm. Dictated by: Sandoval Bonilla M.D. on 01/08/2024 at 19:04 Approved by: Sandoval Bonilla M.D. on 01/08/2024 at 19:04
--- NOTE | 2024-01-08 18:31 | ED_ITS ---
HPI - General Adult General Chief complaint: Abdominal Pain Stated complaint: abd and back px Time Seen by Provider: 01/08/24 17:59 Source: patient Mode of arrival: Ambulatory History of Present Illness HPI narrative: Patient is a 78-year-old female he was here for evaluation of approximately 1 month up mid back pain. Also the stated complaint was that she was having abdominal pain but during my exam she stated that most of her pain was her mid back. All of her symptoms started when she was at home doing some exercises where she was holding onto the sink and bending over trying to stretch her lower back. Has had discomfort since then. Has taken Tylenol. Has seen her primary doctor. Also so it chiropractor. She thought that maybe the chiropractic treatment for short period time but then her symptoms returned. No urinary issues at all. No skin changes. No shortness of breath. She stated that her primary doctor thought that maybe there was ?something else? that was going on Related Data Allergies Allergy/AdvReac Type Severity Reaction Status Date / Time No Known Drug Allergies Allergy Verified 01/08/24 17:35 Review of Systems Review of Systems Narrative: See HPI Patient History Social History Smoking Status: Unknown if ever smoked Smoking Status: Unknown if ever smoked alcohol intake frequency: holidays/special occasions only Substance Use Type: does not use Exam Initial Vital Signs Initial Vital Signs: Vital Signs Temperature 99.4 F 01/08/24 17:35 Pulse Rate 78 01/08/24 17:35 Respiratory Rate 15 01/08/24 17:35 Blood Pressure 172/90 H 01/08/24 17:35 Pulse Oximetry 96 01/08/24 17:35 Oxygen Delivery Method Room Air 01/08/24 17:35 Const General: cooperative, comfortable and No ill appearing HENMT Head: normal to inspection and normocephalic Resp Effort & Inspection: normal respiratory effort Auscultation: clear to auscultation bilaterally Cardio Rate: regular rate Rhythm: regular rhythm GI Inspection: normal to inspection and non-distended Palpation: soft, No firm, No guarding and No tender Back/Spine/Pelvis Back: No CVA tenderness Thoracic/Lumbar Spine: No paraspinal tenderness, No thoracic spinal tenderness and No lumbar spinal tenderness Skin General: no rashes or lesions noted Neuro General: patient alert, patient awake and moves all extremities Course Orders Ordered: ED Orders 01/08/24 17:53 EKG-12 Lead Stat 01/08/24 18:00 Urine Microscopic Stat 01/08/24 18:08 XR abdomen 1V Stat XR chest 1V Stat 01/08/24 18:12 Complete Blood Count AUTO DIFF Stat Comprehensive Metabolic Panel Stat Lipase Stat 01/08/24 18:31 US abd aorta aneurysm screen Stat Discontinued Medications Ondansetron HCl (Ondansetron 4 Mg/2 Ml Inj) 4 mg IV NOW PRN PRN Reason: Nausea And Vomiting Ondansetron HCl (Ondansetron 4 Mg Odt) 4 mg PO NOW PRN PRN Reason: Nausea And Vomiting Vital Signs Vital signs: Vital Signs - 8 hr 01/08/24 19:48 Pulse Rate 70 Respiratory Rate 18 Blood Pressure 146/69 H Pulse Oximetry 96 Oxygen Delivery Method Room Air Medical Decision Making Lab Data Lab results reviewed: Yes I reviewed the patient's lab results. 01/08/24 18:12 01/08/24 18:12 Labs: Lab Results 01/08/24 01/08/24 Range/Units 18:00 18:12 WBC 9.6 (4.5-11.0) X10^3/uL RBC 4.52 (4.0-5.2) X10^6/uL Hgb 13.7 (12.0-16.0) g/dL Hct 40.2 (36-46) % MCV 88.9 (80-100) fL MCH 30.4 (26-34) PG MCHC 34.2 (30-36) % RDW 12.8 (11.6-14.8) % Plt Count TNP Neut % (Auto) 68.7 (50-75) % Lymph % (Auto) 20.6 L (25-40) % [place] % (Auto) 8.6 (3-14) % Eos % (Auto) 1.2 L (2-4) % Baso % (Auto) 0.9 (0-2) % Neut # (Auto) 6600 (3436-4128) /uL Lymph # (Auto) 2000 (7331-9695) /uL [place] # (Auto) 800 (0-900) /uL Eos # (Auto) 100 (0-450) /uL Baso # (Auto) 100 (0-100) /uL RBC Morphology Normal morphology Sodium 133 L (137-145) mmol/L Potassium 3.8 (3.4-5.1) mmol/L Chloride 99 (98-107) mmol/L Carbon Dioxide 24 (22-32) mmol/L BUN 6 L (7-17) mg/dL Creatinine 0.57 (0.52-1.04) mg/dL Estimated GFR > 60 (>60) mL/min BUN/Creatinine Ratio 10.5 (6-22) Glucose 105 (80-110) mg/dL Calcium 9.4 (8.4-10.2) mg/dL Total Bilirubin 0.6 (0.2-1.3) mg/dL AST 32 (14-36) IU/L ALT 18 (<35) IU/L Alkaline Phosphatase 111 (38-126) U/L Total Protein 7.7 (6.3-8.2) g/dL Albumin 4.6 (3.5-5.0) g/dL Globulin 3.1 (1.7-4.1) g/dL Albumin/Globulin Ratio 1.5 (1.0-2.8) Lipase 83 (23-300) U/L Urine RBC 1-5/hpf (0-5/HPF) Urine WBC None seen (0-5/HPF) Ur Squamous Epith Cells None seen (0-5/HPF) Urine Bacteria None seen (None) Urine Mucus 1+ H (Negative) Ur Culture Indicated? Cult not indicated Vol Urine Centrifuged 10ml (spun) Urine Dip Bedside Urine Glucose Negative Bedside Urine Bilirubin - Negative Bedside Urine Ketone - Negative Urine Specific [place] 1.015 Bedside Urine Occult Blood - Negative Bedside Urine pH 6.0 Bedside Urine Protein - Negative Bedside Urine Urobilinogen - Negative Bedside Urine Nitrite - Negative Bedside Urine Leukocytes +/- 15 Esterase Point of care testing: Urine Dip Bedside Urine Glucose Negative Bedside Urine Bilirubin - Negative Bedside Urine Ketone - Negative Urine Specific [place] 1.015 Bedside Urine Occult Blood - Negative Bedside Urine pH 6.0 Bedside Urine Protein - Negative Bedside Urine Urobilinogen - Negative Bedside Urine Nitrite - Negative Bedside Urine Leukocytes +/- 15 Esterase Imaging Data Abdominal x-ray: Radiologist's Impression: PROCEDURE: XR ABDOMEN 1V INDICATIONS: ABD pain TECHNIQUE: One view of the abdomen acquired. COMPARISON: None. FINDINGS: Surgical changes and devices: Partially visualized bilateral hip ORIF. Surgical clips projecting over the pelvis. Bowel: Bowel gas pattern is normal. Soft tissues: No suspicious abdominal calcifications. Visualized solid organ contours appear normal in size. Bones: No suspicious bony lesions. Degenerative changes of the spine and decreased osseous mineralization. IMPRESSION: Nonobstructive bowel gas pattern. Moderate stool burden. Chest x-ray: Radiologist's Impression: PROCEDURE: XR CHEST 1V INDICATIONS: SOB TECHNIQUE: One view of the chest was acquired. COMPARISON: None. FINDINGS: Surgical changes and devices: None. Lungs and pleura: Lungs are clear. No pleural effusions or pneumothorax. Mediastinum: Mediastinal contours appear normal. Heart size is normal. Bones and chest wall: No suspicious bony lesions. Overlying soft tissues appear unremarkable. IMPRESSION: No acute cardiopulmonary abnormality is seen. AAA US: Radiologist's Impression: PROCEDURE: US ABD AORTA ANEURYSM SCREEN INDICATIONS: eval for AAA TECHNIQUE: Real time scanning was performed of the aorta and iliac arteries, with image documentation. COMPARISON: None. FINDINGS: Aorta: Proximal aortic diameter measures 2.3 cm. Mid-aorta measures 1.9 cm. Distal aortic diameter is 1.7 cm. Iliac arteries: Right common iliac artery measures 1.2 cm. Left common iliac artery measures 1.0 cm. IMPRESSION: No abdominal aortic aneurysm. ECG Data Attestation: I personally reviewed and interpreted this ECG as follows: Interpretation: Sinus rhythm Ventricular rate 67 Normal axis Normal QRS Normal QTC No ST T wave changes MDM Narrative Medical decision making narrative: Patient reports approximately 1 month of symptoms. The discomfort was reproducible here in the emergency department either with palpation of her back or in her abdomen. She had quite a bit of discomfort with movement specifically was sitting up. No skin changes over the area. Her radiologic studies here are unremarkable. Her AAA ultrasound is unremarkable. Her LFTs/lipase unremarkable. Who suspect that this is musculoskeletal. She was also describing issues with diarrhea though she was not taking any antidiarrheal medicines. Recommended that she try Imodium. We also discussed other things she could try for her back to include lidocaine patches. Advised that she contact her primary doctor for follow-up. She expressed understanding and agreement with plan. Discharge Plan Departure Patient Disposition: Home Clinical Impression: Back pain, Acute diarrhea Instructions: Diarrhea, DI for Thoracic Back Pain Activity Restrictions/Additional Instructions: You can continue to take all of your medications as directed. You can also try the lidocaine patches to help with your back. You can purchase these [id number]. I also recommend that you try Imodium. This can also be purchased [id number]. This could be helpful for your diarrhea. Contact your primary doctor for a follow-up. Return to the emergency department for new symptoms. Referrals: Rowena Flowers MD [Primary Care Provider] - Stand Alone Forms: Patient Portal/API
[2024-01-08 18:34] LABS: Add Manual Diff / Slide Review SLIDE REVIEW
[2024-01-08 18:44] LABS: RBC Urine 1-5/HPF (0-5/HPF); Urine Volume 10mL (spun)
[2024-01-08 18:45] LABS: Bacteria Urine None Seen; Mucus Urine 1+ (Negative); WBC Urine None Seen (0-5/HPF)
[2024-01-08 18:46] LABS: Culture Indicated Urine Cult Not Indicated; Squamous Epithelial Cell Urine None Seen (0-5/HPF)
[2024-01-08 19:02] LABS: RBC Morphology Normal Morphology
[2024-01-08 19:48] VITALS: BP 146/69; PULSE 70; RESP 18; O2SAT 96
== END 2024-01-08 19:50 | disposition home or self-care (01) ==
PROVIDERS: Physician Assistant; Emergency Provider Emergency Medicine; PCP Family Medicine
DX: M54.6 Pain in thoracic spine (principal); R19.7 Diarrhea, unspecified; R10.9 Unspecified abdominal pain; R06.02 Shortness of breath
CPT/HCPCS: 36415; 71045; 74018; 76706; 80053; 81003; 81015; 83690; 85025; 93005; 99284

== ENCOUNTER → 2024-02-24 10:24 | Outpatient (CLI) | payer MEDICARE, OTHER, SELFPAY ==
--- NOTE | 2024-02-24 10:26 | DI.RAD.S_ITS ---
PROCEDURE: XR DEXA AXIAL SKELETON INDICATIONS: OSTEOPOROSIS COMPARISON: [facility], CR, XR DEXA AXIAL SKELETON, 03/01/2020, 10:03. FINDINGS: Lumbar Spine: Bone mineral density 0.466 g/cm2, T score -5.3, compared to -4.1. Left Forearm: Bone mineral density 0.510 g/cm2, T score -1.3, compared to -3.2. Fracture Risk Calculation (when applicable): Not applicable (T score greater or equal to -1.0 to: NORMAL) (T score from -1.1 to -2.4: OSTEOPENIA) (T score less than or equal to -2.5: OSTEOPOROSIS) IMPRESSION: Improved bone mineral density within the left forearm now mildly osteopenic. Progressive bone mineral density loss with worsening osteoporosis in the lumbar spine. Follow-up guidelines as follows: Osteoporosis: Consider a repeat DEXA and Vertebral Fracture Assessment (VFA) exam in 2 years or sooner if medically necessary, to reassess this patient's status. Osteopenia: Consider a repeat DEXA in 2-3 years to reassess this patient's status, or if there is a new clinical indication. Normal: Consider a repeat DEXA in 5 years or sooner, or if there is a new clinical indication. All treatment decisions require clinical judgment and consideration of individual patient factors, including patient preferences, comorbidities, previous drug use, risk factors not captured in the FRAX model (e.g., frailty, falls, vitamin D deficiency, increased bone turnover, interval significant decline in bone density ) and possible under- or over-estimation of fracture risk by FRAX. In addition, the NOF Guide recommends that FDA-approved medical therapies be considered in postmenopausal women and men age >= 50 years with a: * Hip or vertebral (clinical or morphometric) fracture * T-score of <=-2.5 at the spine or hip * Ten-year fracture probability by FRAX of >= 3% for hip fracture or >=20% for major osteoporotic fracture. People with diagnosed cases of osteoporosis or at high risk for fracture should have regular bone mineral density tests. For patients eligible for Medicare, routine testing is allowed once every 2 years. The testing frequency can be increased to one year for patients who have rapidly progressing disease, those who are receiving or discontinuing medical therapy to restore bone mass, or have additional risk factors. Dictated by: Leslee Zafar M.D. on 02/24/2024 at 13:56 Approved by: Leslee Zafar M.D. on 02/24/2024 at 14:00
== END ==
LOC: RAD 10:25
PROVIDERS: PCP Family Medicine; Referring Provider Family Medicine; Visit Provider Family Medicine
DX: M81.0 Age-related osteoporosis without current pathological fracture (principal)
CPT/HCPCS: 77080; 77081

== ENCOUNTER → 2024-09-21 13:48 | Outpatient (CLI) | payer MEDICARE, OTHER, SELFPAY ==
--- NOTE | 2024-09-21 13:51 | DI.MG.S_ITS ---
MM screening mammo BI: 09/21/2024. BI-RADS: 1 CLINICAL: 78-year old female for bilateral screening mammogram. Tyrer-Cuzick lifetime risk of 4.2%. No personal or first-degree family history of breast cancer. PRIOR EXAMS 12/25/2022, 05/23/2021, 05/22/2020, 05/09/2019, 04/16/2017. MAMMOGRAPHY TECHNIQUE: 2D and 3D (tomosynthesis) digital mammographic views obtained, with additional images as needed for full coverage. Current study was also evaluated with a Computer Aided Detection (CAD) system. DENSITY D. The breasts are extremely dense, which lowers the sensitivity of mammography. MAMMOGRAPHY FINDINGS Bilateral: No suspicious mass, asymmetry, microcalcification, or other abnormality seen. IMPRESSION: * No evidence of malignancy. RECOMMENDATIONS Bilateral * Annual screening mammography. OVERALL ASSESSMENT CATEGORY BI-RADS-1: Negative. The [employer] recommends annual screening mammography beginning at age 40 for women with average risk of breast cancer. ELECTRONICALLY SIGNED: Elizabeth Burleson M.D. on 09/21/2024 at 06:10:00 PM PT Interpreting Station ID: [id number]
== END ==
PROVIDERS: PCP Family Medicine; Referring Provider Family Medicine; Visit Provider Family Medicine
DX: Z12.31 Encounter for screening mammogram for malignant neoplasm of breast (principal); R92.30 Dense breasts, unspecified
CPT/HCPCS: 77063; 77067

== ENCOUNTER 2025-02-21 09:21 | Inpatient (IN) | payer MEDICARE, OTHER, SELFPAY ==
[2025-02-21] VITALS (15 sets, daily range): BP systolic 105–156; BP diastolic 63–84; PULSE 60–78; RESP 15–16; TEMP 36.9–37.1; O2SAT 86–100; BMI 17.2; BMI 16.6
--- NOTE | 2025-02-21 | DI.RAD.S_ITS ---
PROCEDURE: XR CHEST 1V INDICATIONS: NG tube placement TECHNIQUE: One view of the chest was acquired. COMPARISON: None. FINDINGS: Surgical changes and devices: Subdiaphragmatic enteric tube with side port distal to the GE junction and tip overlying the gastric body.. Lungs and pleura: Hyperinflated lungs with emphysematous changes bilaterally. No consolidation. No pleural effusion. No pneumothorax. Mediastinum: Mediastinal contours appear normal. Heart size is normal. Bones and chest wall: No suspicious bony lesions. Overlying soft tissues appear unremarkable. Reversed S-shaped thoracolumbar scoliotic curvature. IMPRESSION: Subdiaphragmatic enteric tube with side port distal to the GE junction and tip overlying the gastric body. Dictated by: Lang Cleveland M.D. on 02/21/2025 at 14:49 Approved by: Lang Cleveland M.D. on 02/21/2025 at 14:51
--- NOTE | 2025-02-21 | DI.RAD.S_ITS ---
PROCEDURE: FL SMALL BOWEL FOLLOW THROUGH INDICATIONS: Small-bowel follow-through without upper GI COMPARISON: [facility], CT, CT ABDOMEN PELVIS W CON, 02/21/2025, 11:00. FINDINGS: KUB: Preprocedural case repairer film demonstrates a normal bowel gas pattern. No suspicious abdominal calcifications. Visualized solid organ contours appear normal. No suspicious bony abnormalities. Small bowel: Mildly dilated loops of small bowel as identified exam. At the hour imaging interval there is persistent contrast in the stomach. No distinct: Opacification. IMPRESSION: Changes consistent with previously identified partial small obstruction. Contrast is not identified within the colon. As indicated, further delayed images may be acquired. Dictated by: Leslee Zafar M.D. on 02/21/2025 at 20:15 Approved by: Leslee Zafar M.D. on 02/21/2025 at 20:17
--- NOTE | 2025-02-21 09:28 | ED.ABDPAIN ---
HPI - Abdominal Pain General Chief Complaint: Abdominal Pain Stated Complaint: Sent from [facility] stomach cramps, N/V 1 Day Time Seen by Provider: 02/21/25 09:28 History of Present Illness HPI narrative: Patient is a 79-year-old female no pertinent past medical history comes into the ED from home for evaluation abdominal pain, vomiting diarrhea started last night, also reports some chills, was seen at walk-in clinic prior to arrival but given symptoms was instructed come into the ED for further evaluation treatment. Patient denies any other symptoms such as headache visual disturbances chest pain shortness breath or any other GI/ symptoms at this time. Patient states remote history of appendectomy and previous . Related Data Home Medications ?Medication ?Instructions ?Recorded ?Confirmed betaxolol 0.5 % eye drops 1 drp EYE-LEFT BID 02/21/25 02/21/25 Previous Rx's ?Medication ?Instructions ?Recorded hydrocodone 5 mg-acetaminophen 325 1 tab PO Q6H PRN pain #20 tabs 08/07/23 mg tablet Allergies Allergy/AdvReac Type Severity Reaction Status Date / Time acetaminophen (From PERCOCET) Allergy Unknown Unverified 02/21/25 11:23 aspirin (ASPIRIN) Allergy Unknown Unverified 02/21/25 11:23 codeine (CODEINE) Allergy Unknown Unverified 02/21/25 11:23 oxycodone (From PERCOCET) Allergy Unknown Unverified 02/21/25 11:23 Review of Systems Review of Systems Narrative: General: Denies fever, chills, weight loss HEENT: Denies headache, eye drainage, eye irritation, head trauma, sore throat, voice change Cardiovascular: Denies any chest pain, palpitations, tachycardia Respiratory: Denies any shortness of breath, cough, wheeze, stridor GI/: Positive abdominal pain, nausea, vomiting, diarrhea, denies bright red blood per rectum, melanotic stools, urinary frequency, urinary retention, dysuria, hematuria MSK: Denies any joint pain, muscle pains, swelling Skin: Denies any rashes, lesions, discoloration Neuro: Denies any headache, lightheadedness, dizziness, fainting, weakness Psych: Denies SI/HI Patient History Social History (System 01/11/24 @ 09:28 by Pino Crain) Smoking Status: Never smoker alcohol intake frequency: holidays/special occasions only Exam Narrative Exam Narrative: General: Cooperative, well-developed, not in acute distress HEENT: Normocephalic, atraumatic, PERRLA, normal sclera, eyelids normal Neck: Active full range of motion, atraumatic Chest: Normal to inspection, negative crepitus, no overlying erythema ecchymosis Respiratory: Normal respiratory effort, not in acute respiratory distress, clear to auscultation bilaterally negative cough, wheeze, tachypnea, rhonchi, rales Cardiology: Regular rate rhythm negative gallop, murmur, rubs GI/: No tenderness to palpation, soft, non rigid, normal to inspection, exam deferred MSK: Full active range of motion in all 4 extremities, atraumatic, no tenderness to palpation of any bony prominences Skin: No rashes or lesions noted Neuro: Alert awake oriented x3, moves all 4 extremities spontaneously, cranial nerves intact, able to answer all questions appropriately follows commands appropriately Psych: Cooperative, negative suicidal or homicidal ideations Initial Vital Signs Initial Vital Signs: Vital Signs Pulse Rate 65 02/21/25 09:36 Blood Pressure 156/81 H 02/21/25 09:36 Pulse Oximetry 91 02/21/25 09:36 Course Orders Ordered: ED Orders 02/21/25 09:29 CT abdomen pelvis w con Stat 02/21/25 09:41 Respiratory Panel (Film Array) Stat 02/21/25 09:57 Complete Blood Count AUTO DIFF Stat Comprehensive Metabolic Panel Stat Lactate (Lactic Acid) Stat Lipase Stat MAG [Magnesium] Stat Discontinued Medications Sodium Chloride (Normal Saline 0.9%) 1,000 mls @ 1,000 mls/hr IV BOLUS ONE Stop: 02/21/25 10:28 Last Admin: 02/21/25 09:53 Dose: 1,000 mls/hr Documented By: Morphine Sulfate (Morphine 4 Mg/Ml Inj) 4 mg IV NOW ONE Stop: 02/21/25 10:07 Last Admin: 02/21/25 10:13 Dose: 4 mg Documented By: Ondansetron HCl (Ondansetron 4 Mg/2 Ml Inj) 4 mg IV NOW ONE Stop: 02/21/25 09:30 Last Admin: 02/21/25 09:53 Dose: 4 mg Documented By: Vital Signs Vital signs: Vital Signs - 8 hr 02/21/25 09:36 02/21/25 09:36 02/21/25 09:42 Temperature 98.4 F Pulse Rate 65 68 Respiratory Rate 16 Blood Pressure 156/81 H 156/81 H Pulse Oximetry 91 97 Oxygen Delivery Method Room Air 02/21/25 10:00 02/21/25 10:00 02/21/25 10:30 Temperature Pulse Rate 64 60 Respiratory Rate Blood Pressure 145/73 H Pulse Oximetry 98 91 Oxygen Delivery Method Room Air 02/21/25 10:30 02/21/25 11:04 02/21/25 11:05 Temperature Pulse Rate 73 73 Respiratory Rate Blood Pressure 149/70 H Pulse Oximetry 86 L 98 Oxygen Delivery Method Room Air 02/21/25 11:05 Temperature Pulse Rate Respiratory Rate Blood Pressure 134/75 Pulse Oximetry Oxygen Delivery Method MDM - Abdominal Pain Lab Data 02/21/25 09:57 02/21/25 09:57 Labs: Lab Results 02/21/25 Range/Units 09:57 WBC 8.0 (4.5-11.0) X10^3/uL RBC 4.75 (4.0-5.2) X10^6/uL Hgb 14.7 (12.0-16.0) g/dL Hct 43.4 (36-46) % MCV 91.3 (80-100) fL MCH 30.9 (26-34) PG MCHC 33.9 (30-36) % RDW 12.9 (11.6-14.8) % Plt Count 250 (150-400) X10^3/uL Neut % (Auto) 90.6 H (50-75) % Lymph % (Auto) 6.6 L (25-40) % [place] % (Auto) 2.6 L (3-14) % Eos % (Auto) 0.0 L (2-4) % Baso % (Auto) 0.2 (0-2) % Neut # (Auto) 7200 H (5056-2056) /uL Lymph # (Auto) 500 L (4948-1745) /uL [place] # (Auto) 200 (0-900) /uL Eos # (Auto) 0 (0-450) /uL Baso # (Auto) 0 (0-100) /uL Sodium 131 L (137-145) mmol/L Potassium 3.9 (3.4-5.1) mmol/L Chloride 95 L (98-107) mmol/L Carbon Dioxide 23 (22-32) mmol/L BUN 15 (7-17) mg/dL Creatinine 0.50 L (0.52-1.04) mg/dL Estimated GFR > 60 (>60) mL/min BUN/Creatinine Ratio 30.0 H (6-22) Glucose 134 H (70-99) mg/dL Lactate 1.2 (0.7-2.1) mmol/L Calcium 9.5 (8.4-10.2) mg/dL Magnesium 1.7 (1.6-2.3) mg/dL Total Bilirubin 1.2 (0.2-1.3) mg/dL AST 45 H (14-36) IU/L ALT 29 (<35) IU/L Alkaline Phosphatase 66 (38-126) U/L Total Protein 8.3 H (6.3-8.2) g/dL Albumin 5.1 H (3.5-5.0) g/dL Globulin 3.2 (1.7-4.1) g/dL Albumin/Globulin Ratio 1.6 (1.0-2.8) Lipase 66 (23-300) U/L Point of care testing: Urine Dip Bedside Urine Glucose Negative Bedside Urine Bilirubin - Negative Bedside Urine Ketone +++ 80 Urine Specific [place] 1.010 Bedside Urine Occult Blood - Negative Bedside Urine pH 7.5 Bedside Urine Protein + 30 Bedside Urine Urobilinogen - Negative Bedside Urine Nitrite - Negative Bedside Urine Leukocytes - Negative Esterase MDM Narrative Medical decision making narrative: Patient is a 79-year-old female no pertinent past medical history comes into the ED from home for evaluation of abdominal pain, vomiting diarrhea any started last night. Does have a remote history of appendectomy and , she states symptoms started last night went to the walk-in clinic prior to arrival but was told to come into the ED for further evaluation. On my exam belly is soft non peritoneal nature, lab work without any leukocytosis, Chem panel unremarkable, lactate normal, CT scan however does show high-grade distal small-bowel obstruction with a zone of transition in mid abdomen just to the left of midline, and this will reach out to General surgery, general surgery recommending admission and G-tube small-bowel follow-through and possible surgical intervention. Patient will be admitted to the hospital The patient's management plan was discussed Dr. Santos, who agrees to admit the patient to their service and assumes care of this patient at this time. Full admission orders will be placed by the primary team. Discharge Plan Departure Patient Disposition: Admitted As Inpatient Clinical Impression: Small bowel obstruction Admit Date/Time: 02/21/25 13:14
--- NOTE | 2025-02-21 09:29 | DI.CT.S_ITS ---
PROCEDURE: CT ABDOMEN PELVIS W CON INDICATIONS: Abdominal pain, nausea and vomiting diarrhea TECHNIQUE: After the administration of intravenous contrast, axial sections acquired from the lung bases to the pubic symphysis. Coronal and sagittal reformats were performed. For radiation dose reduction, the following was used: automated exposure control, adjustment of mA and/or kV according to patient size. COMPARISON: None. FINDINGS: Image quality: Diagnostic. Lower Chest: No significant findings. ABDOMEN: Liver: No definite solid mass. Numerous tiny hypodensities are seen scattered in liver parenchyma which may represent hepatic cyst. Lobulated liver contour is also noted. Gallbladder: Distended gallbladder. No calcified gallstones or gallbladder wall thickening. Biliary ducts: No biliary dilation. Pancreas: No ductal dilation. Spleen: Size is within normal limits. Adrenal Glands: No adrenal nodules. Kidneys and Ureters: No hydronephrosis. No solid mass. No complex renal cystic lesion which requires follow up. Stomach and Bowel: There is significant mid to distal gastric wall thickening and edema. Fluid filling of the proximal to mid small bowel loops with multiple air-fluid level is seen. Zone of transition is seen involving distal small bowel loops in mid to lower abdomen just to the left of midline series 2, image 72 and series 3, image 35. No abscess collection. More distal small bowel loops and colon loops are decompressed. No abnormal bowel wall thickening. Peritoneum: No abnormal intraperitoneal fluid. No free air. Ventral Wall: No significant ventral hernia. Abdominal Nodes: No retroperitoneal or mesenteric adenopathy by size criteria. Vessels: Aorta and inferior vena cava are normal in size. PELVIS: Pelvic Organs: Unremarkable. Bladder: No bladder wall thickening, accounting for underdistention. Pelvic Nodes: No enlarged lymph nodes. Miscellaneous: No inguinal hernias are seen. Bones: No aggressive osseous abnormality. Patient is status post internal fixation of bilateral femoral shafts with postsurgical changes and beam hardening artifacts. IMPRESSION: 1. Finding is suggestive of high-grade distal small-bowel obstruction with zone of transition in mid abdomen just to the left of midline as described above. 2. Suggestion of mid to distal gastric wall thickening and edema concerning for infectious inflammatory gastritis. 3. No abscess collection. No free fluid or free air. 4. Cirrhotic appearing liver with innumerous tiny hypodensities scattered in liver parenchyma suggestive of tiny hepatic cysts. No definite solid appearing hepatic lesion. 5. Other chronic findings as above. Dictated by: Valentin Stoddard M.D. on 02/21/2025 at 11:24 Approved by: Valentin Stoddard M.D. on 02/21/2025 at 11:30
[2025-02-21] MEDS: SODIUM CHLORIDE 0.9% 1,000 ML 1000 ML IV (09:53)
[2025-02-21] MEDS: ONDANSETRON 4 MG/2 ML INJ IV ×2 (09:53→18:25)
[2025-02-21] MEDS: MORPHINE 4 MG/ML INJ IV (10:13)
[2025-02-21 10:36] LABS: Add Manual Diff / Slide Review NO; Hematocrit 43.4 % (36-46); Hemoglobin 14.7 g/dL (12.0-16.0); Lymphocytes Absolute Auto 500 /uL (1100-4500); Mean Corpuscular HGB Conc 33.9 % (30-36); Mean Corpuscular Hemoglobin 30.9 PG (26-34); Mean Corpuscular Volume 91.3 fL (80-100); Platelet Count 250 X10^3/uL (150-400)
[2025-02-21 10:45] LABS: Coronavirus NL 63 Not Detected (Not Detect); SARS- CoV-2 Not Detected (Not Detecte)
[2025-02-21 10:50] LABS: Lactate (Lactic Acid) 1.2 mmol/L (0.7-2.1)
[2025-02-21 10:51] LABS: Alanine Aminotransferase 29 IU/L (<35); Albumin 5.1 g/dL (3.5-5.0); Albumin Globulin Ratio 1.6 (1.0-2.8); Alkaline Phosphatase 66 U/L (38-126); Blood Urea Nitrogen 15 mg/dL (7-17); Calcium 9.5 mg/dL (8.4-10.2); Carbon Dioxide 23 mmol/L (22-32); Chloride 95 mmol/L (98-107); Estimated Glomerular Filt Rate > 60 mL/min (>60); Globulin 3.2 g/dL (1.7-4.1); Glucose 134 mg/dL (70-99); HEMOLYSIS < 15 (0-50); Lipase 66 U/L (23-300); Magnesium 1.7 mg/dL (1.6-2.3); Potassium 3.9 mmol/L (3.4-5.1); Sodium 131 mmol/L (137-145); Total Protein 8.3 g/dL (6.3-8.2)
--- NOTE | 2025-02-21 13:04 | P.HP_ITS ---
History of Present Illness History of Present Illness Date Patient Seen: 02/21/25 Time Patient Seen: 01:00 Date of Onset of Symptoms: 02/20/25 Chief complaint: Sent from [facility] stomach cramps, N/V 1 Day Narrative: Patient is a 79-year-old white female was seen in the walk-in clinic and was sent to the emergency room for possible bowel obstruction. Patient states she developed nausea vomiting and loose stools on 02/21/2025 approximately 10:00 p.m. denies any hematemesis or melena states the stools were soft and mushy but not diarrhea. She developed some periumbilical colicky abdominal pain which started about the same time denies any history of similar pain states she has had some night sweats. And viewing the CT scan patient is noted to have a normal gallbladder but absent appendix right and left hip ORIF switch create some scatter obliterating some of the structures of the pelvis but apparently she had a carcinoid removed back in the with resection of the small intestine and extended lymph node dissection. Patient states that she has no redness chills or sweats associated with alcohol use which she only drinks 1-2 drinks a year. Admission laboratory shows WBC of 8.0 hemoglobin is 14.7 hematocrit 43.4 platelets are 250,000 sodium is 131 potassium 3.9 chloride 95 bicarb is 23 BUN of 15 creatinine 0.5 random blood sugar is 134 lipase is 66. Total bilirubin is 1.2 AST is 45 ALT is 24 alkaline phosphatase 66 patient has pulmonary screen for infection is negative Allergies: Percocet, codeine, aspirin Medications: Hydrocodone, eyedrops, a bowel med. 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 Patient has also had a pelvic fracture in 1996 secondary to a fall from a ladder, has also had a left wrist fracture. Degenerative joint disease. Patient denies any other heart lungs digestive musculoskeletal neurological seizure disorder psychiatric problems risks are Infectious diseases HIV or AIDS. Past surgical history: Appendectomy, followed by a exploratory laparotomy in 1989 with small-bowel resection lymph node dissection and right ovary removal for carcinoid. Right and left hip ORIF, x1, left wrist ORIF, colonoscopy in 2016-negative. 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 Vitals: Temperature is 98.4? pulse 73 respirations 16 BP is 134/75 SaO2 is 98% on room air. Patient is 5 ft 8 in 112 lb Head is normocephalic eyes PERRLA EOMI is intact oropharyngeal cavity is in good repair oropharyngeal soft tissues are moist heart regular rate and rhythm without murmurs lungs are diminished in the bases poor inspiratory and expiratory effort poor chest wall motion noted. Abdomen is soft slightly distended good active bowel sounds no rebound or guarding is noted. Surgical scars are noted but no signs of incisional hernias are noted. Musculoskeletal poor to moderate muscle tone and strength but equal bilaterally no gross deficit elicited. Impression: Nausea vomiting abdominal pain of [address] scan showing possible small bowel obstruction in the right lower quadrant. Very distended stomach is noted History of carcinoid resected in 1989 surgery only no chemo Degenerative joint disease WBC is 8.0 Hemoglobin is 14.7 hematocrit is 43.4 Plan: Discussed with patient the findings we will go ahead and place an NG for decompression of the stomach and proximal GI tract we will schedule a small- bowel follow-through with Gastrografin if any signs of obstruction would scheduled for surgery procedure risks and complications were fully explained including risk for cardiopulmonary depression infection bleeding bowel injury patient understands and consents. All questions were answered to patient and satisfaction. We will admit to the hospitalist and schedule small-bowel follow-through with Gastrografin. Notified hospitalist of the admission. [facility]LY [facility] Social History (System 01/11/24 @ 09:28 by Pino Crain) Smoking Status: Never smoker Meds Home Medications and Allergies Home Medications ?Medication ?Instructions ?Recorded ?Confirmed ?Type hydrocodone 5 mg-acetaminophen 325 1 tab PO Q6H PRN pa in #20 tabs 08/07/23 Rx mg tablet betaxolol 0.5 % eye drops 1 drp EYE-LEFT BID 02/21/25 02/21/25 History Allergies Allergy/AdvReac Type Severity Reaction Status Date / Time acetaminophen (From PERCOCET) Allergy Unknown Unverified 02/21/25 11:23 aspirin (ASPIRIN) Allergy Unknown Unverified 02/21/25 11:23 codeine (CODEINE) Allergy Unknown Unverified 02/21/25 11:23 oxycodone (From PERCOCET) Allergy Unknown Unverified 02/21/25 11:23 Exam Vital Signs (past 8 hours): - 02/21/25 09:36 02/21/25 09:36 02/21/25 09:42 Temperature 98.4 F Pulse Rate 65 68 Respiratory Rate 16 Blood Pressure 156/81 H 156/81 H Pulse Oximetry 91 97 Oxygen Delivery Method Room Air 02/21/25 10:00 02/21/25 10:00 02/21/25 10:30 Temperature Pulse Rate 64 60 Respiratory Rate Blood Pressure 145/73 H Pulse Oximetry 98 91 Oxygen Delivery Method Room Air 02/21/25 10:30 02/21/25 11:04 02/21/25 11:05 Temperature Pulse Rate 73 73 Respiratory Rate Blood Pressure 149/70 H Pulse Oximetry 86 L 98 Oxygen Delivery Method Room Air 02/21/25 11:05 Temperature Pulse Rate Respiratory Rate Blood Pressure 134/75 Pulse Oximetry Oxygen Delivery Method Oxygen Delivery Method Room Air Objective Labs 02/21/25 09:57 02/21/25 09:57 Labs: Laboratory Results - last 24 hr 02/21/25 09:57 WBC 8.0 RBC 4.75 Hgb 14.7 Hct 43.4 MCV 91.3 MCH 30.9 MCHC 33.9 RDW 12.9 Plt Count 250 Neut % (Auto) 90.6 H Lymph % (Auto) 6.6 L [place] % (Auto) 2.6 L Eos % (Auto) 0.0 L Baso % (Auto) 0.2 Neut # (Auto) 7200 H Lymph # (Auto) 500 L [place] # (Auto) 200 Eos # (Auto) 0 Baso # (Auto) 0 Sodium 131 L Potassium 3.9 Chloride 95 L Carbon Dioxide 23 BUN 15 Creatinine 0.50 L Estimated GFR > 60 BUN/Creatinine Ratio 30.0 H Glucose 134 H Lactate 1.2 Calcium 9.5 Magnesium 1.7 Total Bilirubin 1.2 AST 45 H ALT 29 Alkaline Phosphatase 66 Total Protein 8.3 H Albumin 5.1 H Globulin 3.2 Albumin/Globulin Ratio 1.6 Lipase 66 Assessment & Plan Time-Based Coding :: [TOTAL MINUTES] spent with patient and on the chart (including review of chart, obtaining history, exam, reviewing outside data, placing orders, documenting exam and treatment plan, and counseling patient) on [DATE]. PROFEE Equal Opportunity Officer Document charge(s): Yes
--- NOTE | 2025-02-21 14:13 | PC.NURSE ---
Placed 16 Fr NG tube. Pt tolerated fair. Xray taken for verification.
--- NOTE | 2025-02-21 14:38 | P.HP_ITS ---
History of Present Illness History of Present Illness Date Patient Seen: 02/21/25 Time Patient Seen: 14:38 Chief complaint: Sent from [facility] stomach cramps, N/V 1 Day Narrative: S: Patient was a 71-year-old female with acute onset abdominal pain and nausea with vomiting. She presented to the ED and was found to have evidence of a bowel obstruction with a transition point on CT scan. She was seen by General surgery with a Gastrografin ordered. She does have a history of appendectomy with a dissection of lymph nodes and ultimate diagnosis of carcinoid distantly. She was no history of bowel obstruction. Last BM was earlier this morning. No flatus currently. She was given nausea medication in the ED and feels relatively comfortable. She was given Gastrografin around 230 and x-rays are ordered and several hours. O: VS below. NAD, alert and oriented, fluent speech, calm. NG tube in place, not to suction. Normocephalic skull, EOMI, anicteric sclera, symmetric pupils. Oropharynx unremarkable, no droop. Neck supple, midline trachea, no adenopathy. Lungs clear, normal rate and effort. Heart regular, no murmur gallop or rub. Abdomen is soft, non distended and non tender. Hypoactive bowel tones. Extremities are free of edema. Skin is free of rash or lesions. Joints are not swollen or deformed. Judgment appears to be normal. Past medical history is notable for carcinoid, small-bowel resection with radical lymph node dissection, falls, hip fracture, pelvic fracture, DJD. Social history: and lives in [place]. Family history is negative for bowel obstruction. ECG : NSR CTAP: 1. Finding is suggestive of high-grade distal small-bowel obstruction with zone of transition in mid abdomen just to the left of midline as described above. 2. Suggestion of mid to distal gastric wall thickening and edema concerning for infectious inflammatory gastritis. 3. No abscess collection. No free fluid or free air. 4. Cirrhotic appearing liver with innumerous tiny hypodensities scattered in liver parenchyma suggestive of tiny hepatic cysts. No definite solid appearing hepatic lesion. 5. Other chronic findings as above. A/P: 1. SBO, active. Plan: -NG tube is clamped with Gastrografin challenge underway. -pain and antiemetic medication as needed. -general surgery is involved. -high likelihood of requirement for surgical intervention. Anticipate 2 midnights in the hospital, supports inpatient status. She is full resuscitation. [facility], [facility] Social History household members: spouse Smoking Status: Never smoker Meds Home Medications and Allergies Allergies Allergy/AdvReac Type Severity Reaction Status Date / Time acetaminophen (From PERCOCET) Allergy Unknown Unverified 02/21/25 11:23 aspirin (ASPIRIN) Allergy Unknown Unverified 02/21/25 11:23 codeine (CODEINE) Allergy Unknown Unverified 02/21/25 11:23 oxycodone (From PERCOCET) Allergy Unknown Unverified 02/21/25 11:23 Review of Systems Review of Systems Narrative: All else reviewed and otherwise unremarkable except as noted in the history and physical. Exam Vital Signs (past 8 hours): - 02/21/25 09:36 02/21/25 09:36 02/21/25 09:42 Temperature 98.4 F Pulse Rate 65 68 Respiratory Rate 16 Blood Pressure 156/81 H 156/81 H Pulse Oximetry 91 97 Oxygen Delivery Method Room Air 02/21/25 10:00 02/21/25 10:00 02/21/25 10:30 Temperature Pulse Rate 64 60 Respiratory Rate Blood Pressure 145/73 H Pulse Oximetry 98 91 Oxygen Delivery Method Room Air 02/21/25 10:30 02/21/25 11:04 02/21/25 11:05 Temperature Pulse Rate 73 73 Respiratory Rate Blood Pressure 149/70 H Pulse Oximetry 86 L 98 Oxygen Delivery Method Room Air 02/21/25 11:05 02/21/25 11:30 02/21/25 11:30 Temperature Pulse Rate 68 Respiratory Rate Blood Pressure 134/75 105/67 Pulse Oximetry 94 Oxygen Delivery Method 02/21/25 12:00 02/21/25 12:00 02/21/25 12:30 Temperature Pulse Rate 67 Respiratory Rate Blood Pressure 128/70 112/63 Pulse Oximetry 95 Oxygen Delivery Method Room Air 02/21/25 12:30 02/21/25 13:00 02/21/25 13:00 Temperature Pulse Rate 64 77 Respiratory Rate Blood Pressure 139/79 Pulse Oximetry 96 99 Oxygen Delivery Method 02/21/25 13:31 02/21/25 13:31 02/21/25 14:00 Temperature Pulse Rate 78 75 Respiratory Rate Blood Pressure 140/77 Pulse Oximetry 96 99 Oxygen Delivery Method 02/21/25 14:00 Temperature Pulse Rate Respiratory Rate Blood Pressure 140/79 Pulse Oximetry Oxygen Delivery Method Oxygen Delivery Method Room Air Objective ECG Impression: Intervals [place] Rate: 67 P: 40 SC: 142 QRS: 14 QRSD: 78 T: 36 QT: 412 QTc: 435 Interpretive Statements Normal sinus rhythm Labs 02/21/25 09:57 02/21/25 09:57 Labs: Laboratory Results - last 24 hr 02/21/25 02/21/25 09:41 09:57 WBC 8.0 RBC 4.75 Hgb 14.7 Hct 43.4 MCV 91.3 MCH 30.9 MCHC 33.9 RDW 12.9 Plt Count 250 Neut % (Auto) 90.6 H Lymph % (Auto) 6.6 L [place] % (Auto) 2.6 L Eos % (Auto) 0.0 L Baso % (Auto) 0.2 Neut # (Auto) 7200 H Lymph # (Auto) 500 L [place] # (Auto) 200 Eos # (Auto) 0 Baso # (Auto) 0 Sodium 131 L Potassium 3.9 Chloride 95 L Carbon Dioxide 23 BUN 15 Creatinine 0.50 L Estimated GFR > 60 BUN/Creatinine Ratio 30.0 H Glucose 134 H Lactate 1.2 Calcium 9.5 Magnesium 1.7 Total Bilirubin 1.2 AST 45 H ALT 29 Alkaline Phosphatase 66 Total Protein 8.3 H Albumin 5.1 H Globulin 3.2 Albumin/Globulin Ratio 1.6 Lipase 66 Chlamy pneumoniae PCR Not detected Adenovirus (PCR) Not detected B. pertussis DNA (PCR) Not detected B.parapertussis DNA PCR Not detected Coronavirus OC43 (PCR) Not detected Coronavirus HKU1 (PCR) Not detected Coronavirus 229E (PCR) Not detected SARS-CoV-2 (PCR) Not detected Coronavirus NL63 (PCR) Not detected Human Metapneumovir PCR Not detected Influenza Type A (PCR) Not detected Influenza Type B (PCR) Not detected M. pneumoniae (PCR) Not detected Parainfluenza 1 (PCR) Not detected Parainfluenza 2 (PCR) Not detected Parainfluenza 3 (PCR) Not detected Parainfluenza 4 (PCR) Not detected RSV (PCR) Not detected Entero/Rhino (PCR) Not detected Assessment & Plan Time-Based Coding :: 35 min spent with patient and on the chart (including review of chart, obtaining history, exam, reviewing outside data, placing orders, documenting exam and treatment plan, and counseling patient) on 02/21. Quality MIPS - Admit I confirm the patient?s Advance Care Plan is present, Code status is documented, Surrogate decision maker is in patient?s record [If Yes, STOP here]: Yes MIPS - Meds 'Current medications' to include all prescriptions, [id number] products, herbals, cannabis/cannabidiol products, and vitamin/mineral/dietary (nutritional) supplements. I have utilized all available resources to obtain, update, or review the patient?s current medications. [If Yes, STOP here]: Yes
[2025-02-21] MEDS: SODIUM CHLORIDE 0.9% 1,000 ML 100 ML IV (15:02)
--- NOTE | 2025-02-21 15:29 | PC.NURSE ---
admit pt to AC from ED at 1435. ALert and oriented with VSS. ambulating in room with steady gait. NG tube clamped as DI to bring gastrografin. Pt denies pain/nausea and is without signs/symptoms of distress. IVF started (reference EMAR). pt oriented to room and plan of care including NPO status. Instructed to use call light for needs and prior to activity for assist with equipment.
[2025-02-21] MEDS: HEPARIN 5,000 UNIT/ML VIAL 5000 UNIT SUBCUT (16:19)
--- NOTE | 2025-02-21 18:21 | PC.NURSE ---
Dr. Carrion notified that patient had received gastrografin and 2 xrays have been taken, he notes he is in Er and seeing patients and will visualize pictures in xray and follow with instructions for when to place NG to suction. Patient currently has NG in place and clamped as she arrived from ER.
[2025-02-21] MEDS: METOCLOPRAMIDE 10 MG/2 ML INJ 5 MG IV (21:07)
[2025-02-22] MEDS: SODIUM CHLORIDE 0.9% 1,000 ML 100 ML IV ×3 (01:02→21:38)
--- NOTE | 2025-02-22 07:03 | DI.RAD.S_ITS ---
PROCEDURE: XR KUB INDICATIONS: SBO TECHNIQUE: One view of the abdomen acquired. COMPARISON: None. FINDINGS: Surgical changes and devices: Postsurgical changes are noted in bilateral proximal femur from prior internal fixation. NG tube tip is in the stomach lumen. Surgical clips are seen in right side of abdomen. Bowel: Oral contrast is seen throughout the colon extending to descending colon. Excreted IV contrast is also seen within bladder lumen. No gross pneumoperitoneum. No significant small bowel loop distension on the current study. Soft tissues: No suspicious abdominal calcifications. Visualized solid organ contours appear normal in size. Bones: No suspicious bony lesions. IMPRESSION: Finding is suggestive of resolving small bowel obstruction with oral contrast now seen in transverse colon and descending colon. No contrast extravasation or gross free air. Dictated by: Valentin Stoddard M.D. on 02/22/2025 at 8:33 Approved by: Valentin Stoddard M.D. on 02/22/2025 at 8:34
[2025-02-22 07:41] LABS: Add Manual Diff / Slide Review NO; Hematocrit 39.5 % (36-46); Hemoglobin 13.4 g/dL (12.0-16.0); Lymphocytes Absolute Auto 800 /uL (1100-4500); Mean Corpuscular HGB Conc 33.9 % (30-36); Mean Corpuscular Hemoglobin 30.8 PG (26-34); Mean Corpuscular Volume 90.9 fL (80-100); Platelet Count 235 X10^3/uL (150-400)
[2025-02-22 07:54] LABS: Alanine Aminotransferase 21 IU/L (<35); Albumin 4.2 g/dL (3.5-5.0); Albumin Globulin Ratio 1.8 (1.0-2.8); Alkaline Phosphatase 48 U/L (38-126); Blood Urea Nitrogen 15 mg/dL (7-17); Calcium 8.7 mg/dL (8.4-10.2); Carbon Dioxide 22 mmol/L (22-32); Chloride 104 mmol/L (98-107); Estimated Glomerular Filt Rate > 60 mL/min (>60); Globulin 2.3 g/dL (1.7-4.1); Glucose 94 mg/dL (70-99); HEMOLYSIS 23 (0-50); Potassium 3.6 mmol/L (3.4-5.1); Sodium 136 mmol/L (137-145); Total Protein 6.5 g/dL (6.3-8.2)
[2025-02-22 08:00] VITALS: BP 126/74; PULSE 79; RESP 16; TEMP 37.1; O2SAT 95
--- NOTE | 2025-02-22 09:41 | P.PN_ITS ---
Subjective Subjective Date Patient Seen: 02/22/25 Time Patient Seen: 09:15 Interval history: Patient is resting comfortably in bed states her abdomen is feeling better today. Patient is passing some flatus. Patient's small-bowel follow-through with Gastrografin was performed yesterday KUB today shows contrast in the ascending and transverse colon. Morning laboratory shows WBC of 12.9 hemoglobin is 13.4 hematocrit is 39.5 platelets are 235,000 sodium is 136 potassium 3.6 chloride 104 bicarb is 22 BUN of 15 creatinine 0.47 random blood sugar is 94. Lactic is 1.2 AST is 37. KUB showing contrast in the colon. Vitals: Temperature is 98.6? pulse 68 respirations 15 BP is 129/72 SaO2 is 98% on room air Heart regular rate and rhythm without murmurs. Lungs diminished in the bases poor inspiratory and expiratory effort. Abdomen is soft nondistended good active bowel sounds no masses or peritoneal signs. 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 All questions were answered to patient's satisfaction. Exam Vital Signs (past 8 hours): - 02/22/25 08:00 Temperature 98.8 F Pulse Rate 79 Respiratory Rate 16 Blood Pressure 126/74 Pulse Oximetry 95 Oxygen Flow Rate 0 Oxygen Delivery Method Room Air Oxygen Flow Rate 0 Objective Labs 02/22/25 06:45 02/22/25 06:45 Labs: Laboratory Results - last 24 hr 02/21/25 02/21/25 02/21/25 09:41 09:57 18:19 WBC 8.0 RBC 4.75 Hgb 14.7 Hct 43.4 MCV 91.3 MCH 30.9 MCHC 33.9 RDW 12.9 Plt Count 250 Neut % (Auto) 90.6 H Lymph % (Auto) 6.6 L Divide % (Auto) 2.6 L Eos % (Auto) 0.0 L Baso % (Auto) 0.2 Neut # (Auto) 7200 H Lymph # (Auto) 500 L [place] # (Auto) 200 Eos # (Auto) 0 Baso # (Auto) 0 Sodium 131 L Potassium 3.9 Chloride 95 L Carbon Dioxide 23 BUN 15 Creatinine 0.50 L Estimated GFR > 60 BUN/Creatinine Ratio 30.0 H Glucose 134 H POC Whole Bld Glucose 113 H Lactate 1.2 Calcium 9.5 Magnesium 1.7 Total Bilirubin 1.2 AST 45 H ALT 29 Alkaline Phosphatase 66 Total Protein 8.3 H Albumin 5.1 H Globulin 3.2 Albumin/Globulin Ratio 1.6 Lipase 66 Chlamy pneumoniae PCR Not detected Adenovirus (PCR) Not detected B. pertussis DNA (PCR) Not detected B.parapertussis DNA PCR Not detected Coronavirus OC43 (PCR) Not detected Coronavirus HKU1 (PCR) Not detected Coronavirus 229E (PCR) Not detected SARS-CoV-2 (PCR) Not detected Coronavirus NL63 (PCR) Not detected Human Metapneumovir PCR Not detected Influenza Type A (PCR) Not detected Influenza Type B (PCR) Not detected M. pneumoniae (PCR) Not detected Parainfluenza 1 (PCR) Not detected Parainfluenza 2 (PCR) Not detected Parainfluenza 3 (PCR) Not detected Parainfluenza 4 (PCR) Not detected RSV (PCR) Not detected Entero/Rhino (PCR) Not detected 02/22/25 02/22/25 00:38 06:45 WBC 12.9 H D RBC 4.35 Hgb 13.4 Hct 39.5 MCV 90.9 MCH 30.8 MCHC 33.9 RDW 12.8 Plt Count 235 Neut % (Auto) 85.5 H Lymph % (Auto) 6.4 L Divide % (Auto) 7.9 Eos % (Auto) 0.1 L Baso % (Auto) 0.1 Neut # (Auto) 81153 H Lymph # (Auto) 800 L Divide # (Auto) 1000 H Eos # (Auto) 0 Baso # (Auto) 0 Sodium 136 L Potassium 3.6 Chloride 104 Carbon Dioxide 22 BUN 15 Creatinine 0.47 L Estimated GFR > 60 BUN/Creatinine Ratio 31.9 H Glucose 94 POC Whole Bld Glucose 124 H Lactate Calcium 8.7 Magnesium Total Bilirubin 1.2 AST 37 H ALT 21 Alkaline Phosphatase 48 Total Protein 6.5 Albumin 4.2 Globulin 2.3 Albumin/Globulin Ratio 1.8 Lipase Chlamy pneumoniae PCR Adenovirus (PCR) B. pertussis DNA (PCR) B.parapertussis DNA PCR Coronavirus OC43 (PCR) Coronavirus HKU1 (PCR) Coronavirus 229E (PCR) SARS-CoV-2 (PCR) Coronavirus NL63 (PCR) Human Metapneumovir PCR Influenza Type A (PCR) Influenza Type B (PCR) M. pneumoniae (PCR) Parainfluenza 1 (PCR) Parainfluenza 2 (PCR) Parainfluenza 3 (PCR) Parainfluenza 4 (PCR) RSV (PCR) Entero/Rhino (PCR) PFSH Social History household members: spouse Smoking Status: Never smoker Assessment & Plan Time-Based Coding :: [TOTAL MINUTES] spent with patient and on the chart (including review of chart, obtaining history, exam, reviewing outside data, placing orders, documenting exam and treatment plan, and counseling patient) on [DATE]. 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
[2025-02-22] MEDS: HEPARIN 5,000 UNIT/ML VIAL 5000 UNIT SUBCUT ×2 (09:42→21:38)
--- NOTE | 2025-02-22 11:09 | DIET.CONS ---
Dietary Consultation Note Admission Date: 02/21/2025 13:14 Assessment: 79 y F admitted for SBO. Dietitian screened for low MNA. Met with pt at bedside. Hx of colitis in 2017 with dramatic weight loss, eventually saw GI doctor and got put on medication, weight was able to return to 118 lb (53.6 kg). This past April, had another flare up, weight went down to 91 lb, saw GI again and adjusted medications. Weight has started to climb back up to 100s. Pt has good appetite, eating multiple times per day up until day before admission here. Nutrition focused physical exam performed showing severe muscle wasting in temples, deltoid, trapezius and severe subcutaneous fat loss in buccal and orbital fat pads and triceps Ht: 172.72 cm Wt: 49.5 kg BMI: 16.6 UBW: 118 lb, 53.6 kg Last BM: 02/22/25 (02/22/25 09:51) MNA: 9 Marbin Score: 20 Diet: 02/21/25 14:35 NPO Diet Diet Modifications: NPO Type: Strict Nutrition Percent Meal Consumed 0% 02/21/25 18:00 Labs: RBC 4.35 X10^6/uL (4.0-5.2) 02/22/25 06:45 Hgb 13.4 g/dL (12.0-16.0) 02/22/25 06:45 Hct 39.5 % (36-46) 02/22/25 06:45 Creatinine 0.47 mg/dL (0.52-1.04) L 02/22/25 06:45 Lactate 1.2 mmol/L (0.7-2.1) 02/21/25 09:57 Nutrition Diagnosis: Severe chronic protein calorie malnutrition r/t alterations in GI tract as evidenced by difficulty re-gaining weight after colitis flare-up, BMI severely underweight for age, severe muscle wasting (temples, deltoid, trapezius) and severe subcutaneous fat loss (buccal/orbital fat pads, triceps) Interventions: pt NPO, education provided on when normal diet able to be resumed including- freq meals Q3H and protein-kcal drink supplements EER: 1750 kcals (35kcals/kg per BMI) 75 g protein (1.5 g/kg vs 18% kcals) Monitoring/Evaluations: days NPO Electronically Signed by: Sheryl Solorzano 02/22/25 11:09 Clinical Dietitian [address] [address]
--- NOTE | 2025-02-22 14:53 | CM.DANOTE ---
Initial DCP Assessment Visit Note Reviewed EMR and team rounds for pt's medical status and updates. Met with pt at bedside to introduce self and role, pt was found to be alert/oriented, and was feeling much improved than when she first arrived to the ED. Pt lives independently with her spouse in their own home on [address]. She may need a [employer] if they cannot obtain a ferry reservation tomorrow, which is when the Surgeon stated she will be ready for d/c. Her spouse will transport. Payor: Medicare PCP: Rowena Flowers Attending: Dr. Carrion Pt is a 79 year-old F who had been experiencing abdominal pain, nausea, vomiting, and diarrhea for over 24-hours prior to arriving to the ED. She was first seen in the [facility] for evaluation, then was sent to the ED for concerns of a possible bowel obstruction. Surgery was consulted, and the plan was made to admit for placement of a NG tube for stomach decompression, and a Gastrographin study to r/o a SBO. DCP will continue to monitor for any further evolving needs prior to her d/c. Discharge Planning/Care Management CM Discharge Assessment Start: 02/21/25 13:27 Freq: Status: Active Protocol: Document 02/22/25 14:51 DPL (Rec: 02/22/25 14:53 DPL [id number]) Discharge Planning Assessment Assigned Discharge DULCE Pineda Advance Directives? Yes Advance Directives No on File History Provided By Patient Has Patient been No admitted in last 30 days? Prior Living House Arrangements Household Members spouse Type of Drives own vehicle transporation used prior to admit Independent with ADL Yes 's Is patient alert and Yes oriented? Caregiver for No Another Discharge Plan Home Referrals Initiated None needed Review Status In Process Please Provide Date 02/22/25 Initial DC Assessment Was Performed
--- NOTE | 2025-02-22 16:23 | P.PN_ITS ---
Subjective Subjective Date Patient Seen: 02/22/25 Interval history: Chief complaint: Abdominal pain nausea and vomiting with findings suggesting small bowel obstruction History of present illness: 02/21: 71-year-old female with acute onset abdominal pain and nausea with vomiting. She presented to the ED and was found to have evidence of a bowel obstruction with a transition point on CT scan. She was seen by General surgery with a Gastrografin ordered. She does have a history of appendectomy with a dissection of lymph nodes and ultimate diagnosis of carcinoid distantly. She was no history of bowel obstruction. Last BM was earlier this morning. No flatus currently. She was given nausea medication in the ED and feels relatively comfortable. She was given Gastrografin around 230 and x-rays are ordered and several hours. Hospital course: 02/22: Patient had a large bowel movement after Gastrografin administered NG tube clamped residuals being monitored patient is asking about when she can start eating again Review of systems: No chest pain palpitations shortness for breath No fever or chills The paresthesia paresis Physical examination: No acute distress Heart and lungs clear Abdomen soft bowel sounds present Extremities no Neuro nonfocal Assessment and plan: Possible small bowel obstruction which resolved with small-bowel follow-through with Gastrografin * NG tube management per surgery * Advance diet per surgery DVT prophylaxis: * Not indicated Code status: * Full code blue Disposition: * Continue inpatient for now very good possibility at least 50% chance patient will be able to discharge 02/23 Time based billin minutes were involved in the management of this patient including [id number] evaluation physical examination review of objective laboratory and imaging data and discussion with surgery Exam Vital Signs (past 8 hours): Oxygen Delivery Method Room Air Oxygen Flow Rate 0 Objective Labs 02/22/25 06:45 02/22/25 06:45 Labs: Laboratory Results - last 24 hr 02/21/25 02/22/25 02/22/25 18:19 00:38 06:45 WBC 12.9 H D RBC 4.35 Hgb 13.4 Hct 39.5 MCV 90.9 MCH 30.8 MCHC 33.9 RDW 12.8 Plt Count 235 Neut % (Auto) 85.5 H Lymph % (Auto) 6.4 L [place] % (Auto) 7.9 Eos % (Auto) 0.1 L Baso % (Auto) 0.1 Neut # (Auto) 00108 H Lymph # (Auto) 800 L [place] # (Auto) 1000 H Eos # (Auto) 0 Baso # (Auto) 0 Sodium 136 L Potassium 3.6 Chloride 104 Carbon Dioxide 22 BUN 15 Creatinine 0.47 L Estimated GFR > 60 BUN/Creatinine Ratio 31.9 H Glucose 94 POC Whole Bld Glucose 113 H 124 H Calcium 8.7 Total Bilirubin 1.2 AST 37 H ALT 21 Alkaline Phosphatase 48 Total Protein 6.5 Albumin 4.2 Globulin 2.3 Albumin/Globulin Ratio 1.8 02/22/25 02/22/25 07:45 11:39 WBC RBC Hgb Hct MCV MCH MCHC RDW Plt Count Neut % (Auto) Lymph % (Auto) [place] % (Auto) Eos % (Auto) Baso % (Auto) Neut # (Auto) Lymph # (Auto) [place] # (Auto) Eos # (Auto) Baso # (Auto) Sodium Potassium Chloride Carbon Dioxide BUN Creatinine Estimated GFR BUN/Creatinine Ratio Glucose POC Whole Bld Glucose 97 100 H Calcium Total Bilirubin AST ALT Alkaline Phosphatase Total Protein Albumin Globulin Albumin/Globulin Ratio [facility] Social History household members: spouse Smoking Status: Never smoker Assessment & Plan Time-Based Coding :: [TOTAL MINUTES] spent with patient and on the chart (including review of chart, obtaining history, exam, reviewing outside data, placing orders, documenting exam and treatment plan, and counseling patient) on [DATE]. Quality VTE Deep Vein Thrombosis/Pulmonary Embolism Present on Admission: No
--- NOTE | 2025-02-22 16:41 | PC.NURSE ---
1520 Pt resting in bed-denies pain, nausea, or shortness of breath. Assessed NG residual with result of <5cc. Removed NG tube - Pt tolerated well. Pt able to tolerate clear liquids without difficulty. Up walking in halls and denies needs at this time.
[2025-02-22 19:00] VITALS: BP 115/74; PULSE 68; RESP 15; TEMP 37; O2SAT 98
[2025-02-23 05:52] LABS: Hematocrit 35.0 % (36-46); Hemoglobin 12.0 g/dL (12.0-16.0); Mean Corpuscular HGB Conc 34.2 % (30-36); Mean Corpuscular Hemoglobin 31.3 PG (26-34); Mean Corpuscular Volume 91.5 fL (80-100); Platelet Count 185 X10^3/uL (150-400)
[2025-02-23 06:07] LABS: Alanine Aminotransferase 16 IU/L (<35); Albumin 3.5 g/dL (3.5-5.0); Albumin Globulin Ratio 1.5 (1.0-2.8); Alkaline Phosphatase 44 U/L (38-126); Blood Urea Nitrogen 13 mg/dL (7-17); Calcium 7.6 mg/dL (8.4-10.2); Carbon Dioxide 25 mmol/L (22-32); Chloride 105 mmol/L (98-107); Estimated Glomerular Filt Rate > 60 mL/min (>60); Globulin 2.4 g/dL (1.7-4.1); Glucose 83 mg/dL (70-99); HEMOLYSIS < 15 (0-50); Potassium 3.5 mmol/L (3.4-5.1); Sodium 135 mmol/L (137-145); Total Protein 5.9 g/dL (6.3-8.2)
[2025-02-23 08:00] VITALS: BP 137/77; PULSE 59; RESP 18; TEMP 36.8; O2SAT 99
--- NOTE | 2025-02-23 08:30 | P.DS_ITS ---
History of Present Illness History of Present Illness Date Patient Seen: 02/23/25 Chief complaint: Sent from [facility] stomach cramps, N/V 1 Day Narrative: Chief complaint: Abdominal pain nausea and vomiting with findings suggesting small bowel obstruction History of present illness: 02/21: 71-year-old female with acute onset abdominal pain and nausea with vomiting. She presented to the ED and was found to have evidence of a bowel obstruction with a transition point on CT scan. She was seen by General surgery with a Gastrografin ordered. She does have a history of appendectomy with a dissection of lymph nodes and ultimate diagnosis of carcinoid distantly. She was no history of bowel obstruction. Last BM was earlier this morning. No flatus currently. She was given nausea medication in the ED and feels relatively comfortable. She was given Gastrografin around 230 and x-rays are ordered and several hours. Hospital course: 02/22: Patient had a large bowel movement after Gastrografin administered NG tube clamped residuals being monitored patient is asking about when she can start eating again Review of systems: No chest pain palpitations shortness for breath No fever or chills The paresthesia paresis Physical examination: No acute distress Heart and lungs clear Abdomen soft bowel sounds present Extremities no Neuro nonfocal Assessment and plan: Possible small bowel obstruction which resolved Disposition: * Discharge home 35 minutes were involved in the management of this patient including [id number] evaluation physical examination review of objective laboratory and imaging data and discussion with surgery Discharge Providers Provider Date of admission: 02/21/25 13:14 Discharge Date: 02/23/25 Primary care physician: Rowena Flowers MD Discharge provider: Tarun Shin MD Exam Vital Signs (past 8 hours): - 02/23/25 08:00 Temperature 98.2 F Pulse Rate 59 L Respiratory Rate 18 Blood Pressure 137/77 Pulse Oximetry 99 Oxygen Flow Rate 0 Oxygen Delivery Method Room Air Oxygen Flow Rate 0 Objective Labs 02/23/25 05:01 02/23/25 05:01 Labs: Laboratory Results - last 24 hr 02/22/25 02/22/25 02/23/25 07:45 11:39 05:01 WBC 7.7 RBC 3.83 L Hgb 12.0 Hct 35.0 L MCV 91.5 MCH 31.3 MCHC 34.2 RDW 12.8 Plt Count 185 Sodium 135 L Potassium 3.5 Chloride 105 Carbon Dioxide 25 BUN 13 Creatinine 0.43 L Estimated GFR > 60 BUN/Creatinine Ratio 30.2 H Glucose 83 POC Whole Bld Glucose 97 100 H Calcium 7.6 L Total Bilirubin 1.0 AST 31 ALT 16 Alkaline Phosphatase 44 Total Protein 5.9 L Albumin 3.5 Globulin 2.4 Albumin/Globulin Ratio 1.5 PFSH Social History household members: spouse Smoking Status: Never smoker Discharge Plan Discharge Plan Patient Disposition: Home Discharge orders & Medications Prescriptions: No Action No Known Home Medications Follow up/Referrals: Rowena Flowers MD [Primary Care Provider, Family Practice] Visit Report/Discharge Packet Stand Alone Forms: Patient Portal/API, Stroke Signs & Symptoms Discharge Data Primary Care Provider: Rowena Flowers Quality VTE Deep Vein Thrombosis/Pulmonary Embolism Present on Admission: No
--- NOTE | 2025-02-23 08:36 | CM.DPC ---
DCP Discharge Home Per MD, pt had bowel movement after Gastrogafin and medically stable to discharge home today with outpt f/u and no identified barriers to discharge. Per Rn, discharge instructions to be given and no concerns noted and plan is home via spouse POV back to [place] later today. Kylee Robins MSW
--- NOTE | 2025-02-23 10:16 | PM.PN.IH.1 ---
Subjective Subjective Date Patient Seen: 02/23/25 Time Patient Seen: 09:30 Interval history: Patient is seen in her room dressed in her street clothes ready to be discharged she is doing well tolerating diet bowels were functioning well having no problems very pleased with the results. She underwent a small-bowel follow-through with Gastrografin showing no small-bowel obstruction she is having no further abdominal pain or nausea or vomiting. Morning laboratory shows WBC of 7.7 hemoglobin is 12.0 hematocrit is 35.0 platelets are 185,000 sodium is 135 potassium 3.5 chloride 105 bicarb is 25 BUN 13 creatinine 0.43 random blood sugar is 83 normal LFTs. Vitals: Temperature is 98.2? pulse 59 respirations 18 BP is 137/77 SaO2 is 99% on room air. Heart regular rate and rhythm without murmurs. Lungs are clear poor inspiratory and expiratory effort poor chest wall motion noted but no rales rhonchi or wheezes noted. Abdomen is soft nondistended no masses or peritoneal signs. Impression: Resolved nausea vomiting abdominal pain rule out small-bowel obstruction as per CT scan Plan: Patient was discussed the findings baby discharge as per hospitalist patient is resume normal activities and diet recommend MiraLax every day return if any problems questions or concerns all questions were answered to the patient's satisfaction. Follow up with family physician for routine care. Exam Vital Signs (past 8 hours): - 02/23/25 08:00 Temperature 98.2 F Pulse Rate 59 L Respiratory Rate 18 Blood Pressure 137/77 Pulse Oximetry 99 Oxygen Flow Rate 0 Oxygen Delivery Method Room Air Oxygen Flow Rate 0 Objective Labs 02/23/25 05:01 02/23/25 05:01 Labs: Laboratory Results - last 24 hr 02/22/25 02/22/25 02/23/25 07:45 11:39 05:01 WBC 7.7 RBC 3.83 L Hgb 12.0 Hct 35.0 L MCV 91.5 MCH 31.3 MCHC 34.2 RDW 12.8 Plt Count 185 Sodium 135 L Potassium 3.5 Chloride 105 Carbon Dioxide 25 BUN 13 Creatinine 0.43 L Estimated GFR > 60 BUN/Creatinine Ratio 30.2 H Glucose 83 POC Whole Bld Glucose 97 100 H Calcium 7.6 L Total Bilirubin 1.0 AST 31 ALT 16 Alkaline Phosphatase 44 Total Protein 5.9 L Albumin 3.5 Globulin 2.4 Albumin/Globulin Ratio 1.5 [facility] Social History household members: spouse Smoking Status: Never smoker Assessment & Plan Time-Based Coding :: [TOTAL MINUTES] spent with patient and on the chart (including review of chart, obtaining history, exam, reviewing outside data, placing orders, documenting exam and treatment plan, and counseling patient) on [DATE]. 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
== END 2025-02-23 09:20 | disposition home or self-care (01) | DRG 388 ==
LOC: ED 11:58 → AC 13:15
PROVIDERS: Surgery; Admitting Provider Hospitalist; Emergency Provider Student in an Organized Health Care Education/Training Program; PCP Family Medicine; Referring Provider Student in an Organized Health Care Education/Training Program; Visit Provider Hospitalist
DX: K56.609 Unspecified intestinal obstruction, unspecified as to partial versus complete obstruction (principal); E43 Unspecified severe protein-calorie malnutrition; Z68.1 Body mass index [BMI] 19.9 or less, adult; Z85.030 Personal history of malignant carcinoid tumor of large intestine; Z90.49 Acquired absence of other specified parts of digestive tract
CPT/HCPCS: 36415; 71045; 74018; 74177; 74250; 80053; 81003; 82962; 83605; 83690; 83735; 85025; 85027; 87633; 96374; 96375; 99222; 99231; 99284; J1171; J1644; J2272; J2405; J2765; Q9967